=== PATIENT | male | born 1985 | race Caucasian/White ===

== ENCOUNTER 2018-04-28 22:52 | Emergency (ER) | payer BC ==
[~2018-04-28] VITALS: Ht 180.3 cm; Wt 97.0 kg
[2018-04-28 22:52] VITALS: BP 131/85
[2018-04-28] MEDS ORDERED: SULF1TAB24 PO (23:46)
--- NOTE | 2018-04-28 23:49 | PHYS DOC ---
Adult General Chief Complaint Chief Complaint laceration HPI HPI 33 years old gentleman presented emergency department with a laceration to the right hand, is able to move his fingers in all directions against resistance Review of Systems Review of Systems Constitutional: Denies fever or chills [] Eyes: Denies change in visual acuity, redness, or eye pain [] HENT: Denies nasal congestion or sore throat [] Respiratory: Denies cough or shortness of breath [] Cardiovascular: No additional information not addressed in HPI [] GI: Denies abdominal pain, nausea, vomiting, bloody stools or diarrhea [] : Denies dysuria or hematuria [] Musculoskeletal: Denies back pain or joint pain [] Integument: Right index laceration Neurologic: Denies headache, focal weakness or sensory changes [] Endocrine: Denies polyuria or polydipsia [] All other systems were reviewed and found to be within normal limits, except as documented in this note. Allergies Allergies Allergies Coded Allergies Type Severity Reaction Last Updated Verified Penicillins Allergy Intermediate 04/28/18 Yes doxycycline Allergy Intermediate 04/28/18 Yes Physical Exam Physical Exam Constitutional: Well developed, well nourished, no acute distress, non-toxic appearance. [] HENT: Normocephalic, atraumatic, bilateral external ears normal, oropharynx moist, no oral exudates, nose normal. [] Eyes: PERRLA, EOMI, conjunctiva normal, no discharge. [] Neck: Normal range of motion, no tenderness, supple, no stridor. [] Cardiovascular:Heart rate regular rhythm, no murmur [] Lungs & Thorax: Bilateral breath sounds clear to auscultation [] Abdomen: Bowel sounds normal, soft, no tenderness, no masses, no pulsatile masses. [] Skin: Warm, dry, no erythema, no rash. [] Back: No tenderness, no CVA tenderness. [] Extremities: No tenderness, no cyanosis, no clubbing, ROM intact, no edema. [] Neurologic: Alert and oriented X 3, normal motor function, normal sensory function, no focal deficits noted. [] Psychologic: Affect normal, judgement normal, mood normal. [] Current Patient Data Vital Signs Vital Signs Date Time Temp Pulse Resp B/P (MAP) Pulse Ox O2 Delivery O2 Flow Rate FiO2 04/28/18 22:52 98.5 110 18 98 Room Air EKG EKG [] Radiology/Procedures Radiology/Procedures [] Course & Med Decision Making Course & Med Decision Making wound inspected no foreign body noticed, irrigated with normal saline, 1000 mL , local anesthetic let again 1% used, nylon 4.0 used suture to close the wound 3 stitches Patient's able to move his finger in all directions against resistance [] Final Impression Final Impression [] Problems: (1) Laceration of hand Qualifiers: Qualified Codes: S61.411A - Laceration without foreign body of right hand, initial encounter Dragon Disclaimer Dragon Disclaimer This electronic medical record was generated, in whole or in part, using a voice recognition dictation system. DIVYA ALVARES MD Apr 28, 2018 23:49
--- NOTE | 2018-04-29 09:12 | RAD ---
EXAM: 3 views right hand DATE: 04/28/2018 11:12 PM INDICATION: Injury to right hand, 2 lacerations to posterior part of hand COMPARISON: No Prior FINDINGS/ IMPRESSION: 1. No evidence of acute fracture or dislocation. 2. Joint spaces are preserved without significant degenerative/proliferative change. 3. Mild dorsal soft tissue swelling. No definite retained radiopaque foreign body. Electronically signed by: Moose Lugo MD (04/29/2018 9:08 AM) [facility]
== END 2018-04-28 23:56 | disposition home or self-care (01) ==
LOC: ER 22:52
DX: S61.411A Laceration without foreign body of right hand, initial encounter (principal); X58.XXXA Exposure to other specified factors, initial encounter; Y93.89 Activity, other specified; Y92.89 Other specified places as the place of occurrence of the external cause; Y99.8 Other external cause status; Z88.0 Allergy status to penicillin; Z88.1 Allergy status to other antibiotic agents
CPT/HCPCS: 12001; 29130; 73130; 99283

== ENCOUNTER 2018-05-31 23:23 | Emergency (ER) | payer BC ==
[~2018-05-31] VITALS: Ht 180.3 cm; Wt 99.8 kg
[~2018-05-31 23:23] MED LIST: SULF1TAB24 PO
[2018-05-31 23:25] VITALS: BP 118/74
--- NOTE | 2018-05-31 23:34 | ED.ADGEN ---
Past History Past Medical History: No Pertinent History Past Surgical History: Other Alcohol Use: None Drug Use: None Adult General Chief Complaint Chief Complaint " I got surgery on of last month... everything was doing well ... last three days the incision area gotten more tender and red.. I tried to get in to see Dr. Daniel Esteves at [facility]... but he was out this weekend..." HPI HPI Patient is a 33 year old male who presents with above hx and complaints of inflammation of his suture line scar on right lower groin. Patient states shortly after the surgery suture line appeared to be healing well and had no inflammation. In the last 2 or 3 days he notices grown more red swollen and tender. On palpation of incision area it appears he may have cellulitis. But there is no obvious fluctuating abscess. 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 Patient denies any immunosuppression. Patient denies any travel. Patient denies any specific ill contacts. Patient does agree to injection of Rocephin and will be given a prescription for Keflex/Bactrim whichever med he can find at the most economical [place]. Patient must follow-up with his doctor Loretta Esteves at [facility]. Review of Systems Review of Systems Constitutional: Denies fever or chills [] Eyes: Denies change in visual acuity, redness, or eye pain [] HENT: Denies nasal congestion or sore throat [] Respiratory: Denies cough or shortness of breath [] Cardiovascular: No additional information not addressed in HPI [] GI: Denies abdominal pain, nausea, vomiting, bloody stools or diarrhea [] : Denies dysuria or hematuria [] Musculoskeletal: Denies back pain or joint pain [] Integument: Denies rash or skin lesions []complaints of cellulitis of surgical incision site Neurologic: Denies headache, focal weakness or sensory changes [] Endocrine: Denies polyuria or polydipsia [] All other systems were reviewed and found to be within normal limits, except as documented in this note. Family History Family History Noncontributory Current Medications Current Medications Current Medications Medications (Trade) Dose Ordered Sig/Irma Start Time Stop Time Status Last Admin Dose Admin Ceftriaxone Sodium (Rocephin Im) 2 gm 1X ONCE 06/01/18 00:30 06/01/18 00:32 DC Allergies Allergies Allergies Coded Allergies Type Severity Reaction Last Updated Verified Penicillins Allergy Intermediate 04/28/18 Yes doxycycline Allergy Intermediate 04/28/18 Yes Physical Exam Physical Exam Constitutional: Well developed, well nourished, mild distress, non-toxic appearance. [] HENT: Normocephalic, atraumatic, bilateral external ears normal, oropharynx moist, no oral exudates, nose normal. [] Eyes: PERRLA, EOMI, conjunctiva normal, no discharge. [] Neck: Normal range of motion, no tenderness, supple, no stridor. [] Cardiovascular:Heart rate regular rhythm, no murmur [] Lungs & Thorax: Bilateral breath sounds equal apex with scattered wheezes on auscultation [] Abdomen: Bowel sounds normal, soft, no tenderness, no masses, no pulsatile masses. []Except Right lower abdomen surgery site as per history of present illness Skin: Warm, dry, no erythema, no rash. [] Multiple tattoos Back: No tenderness, no CVA tenderness. [] Extremities: No tenderness, no cyanosis, no clubbing, ROM intact, no edema. [] Neurologic: Alert and oriented X 3, normal motor function, normal sensory function, no focal deficits noted. [] Psychologic: Affect normal, judgement normal, mood normal. [] Current Patient Data Vital Signs Vital Signs Date Time Temp Pulse Resp B/P (MAP) Pulse Ox O2 Delivery O2 Flow Rate FiO2 05/31/18 23:25 98.0 98 20 98 Room Air EKG EKG [] Radiology/Procedures Radiology/Procedures [] Course & Med Decision Making Course & Med Decision Making Pertinent Labs and Imaging studies reviewed. (See chart for details). Patient to use warm compresses. Patient apply Polysporin to site 4 times a day. Patient take Keflex or Bactrim as directed. Must follow-up with his surgeon. Tylenol and ibuprofen for discomfort [] Final Impression Final Impression 1. Hernia Surgery Line Inflammation[]-cellulitis ? Dragon Disclaimer Dragon Disclaimer This electronic medical record was generated, in whole or in part, using a voice recognition dictation system. Dragon Disclaimer This chart was dictated in whole or in part using Voice Recognition software in a busy, high-work load, and often noisy Emergency Department environment. It may contain unintended and wholly unrecognized errors or omissions. Discharge Summary Visit Information Final Diagnosis Problems Medical Problems: (1) Cellulitis Status: Acute Brief Hospital Course Allergies Allergies Coded Allergies Type Severity Reaction Last Updated Verified Penicillins Allergy Intermediate 04/28/18 Yes doxycycline Allergy Intermediate 04/28/18 Yes Vital Signs Vital Signs Date Time Temp Pulse Resp B/P (MAP) Pulse Ox O2 Delivery O2 Flow Rate FiO2 05/31/18 23:25 98.0 98 20 98 Room Air Brief Hospital Course Mr. Estrella is a 33 old male who presented with cellulitis of Rt. Lower surgery site from 04/22. ( Per Pt. did not wait for his antibiotic and left) Pt. to follow up with his surgeon Discharge Information Condition at Discharge: Stable Disposition/Orders: D/C to Home Dischare Medications Current Medications Ceftriaxone Sodium (Rocephin Im) 2 gm 1X ONCE IM ; Start 06/01/18 at 00:30; Stop 06/01/18 at 00:32; Status DC Active Scripts Active Bactrim Ds Tablet (Sulfamethoxazole/Trimethoprim) 1 Each Tablet 1 Tab PO BID Keflex (Cephalexin) 500 Mg Capsule 500 Mg PO TID 10 Days Bactrim Ds Tablet (Sulfamethoxazole/Trimethoprim) 1 Each Tablet 1 Tab PO BID PRITI MCKENZIE MD May 31, 2018 23:34
[2018-05-31] MEDS ORDERED: CEPH-264 PO (23:58)
[2018-05-31] MEDS ORDERED: SULF1TAB24 PO (23:58)
[2018-06-01] MEDS ORDERED: cefTRIAXone IM 1 GM VIAL IM ONE (00:30)
== END 2018-06-01 00:22 | disposition left against medical advice (07) ==
LOC: ER 23:23
DX: L03.314 Cellulitis of groin (principal); T81.40XA Infection following a procedure, unspecified, initial encounter; Z98.890 Other specified postprocedural states; Z86.14 Personal history of Methicillin resistant Staphylococcus aureus infection; Z88.0 Allergy status to penicillin; Z88.1 Allergy status to other antibiotic agents
CPT/HCPCS: 99283

== ENCOUNTER 2018-06-05 21:14 | Emergency (ER) | payer BC ==
[~2018-06-05] VITALS: Ht 180.3 cm; Wt 98.9 kg
[~2018-06-05 21:14] MED LIST changes: +CEPH-264 PO
[2018-06-05 21:18] VITALS: BP 121/80
--- NOTE | 2018-06-05 23:00 | PHYS DOC ---
Past History Past Medical History: No Pertinent History Past Surgical History: Other Alcohol Use: None Drug Use: None Adult General Chief Complaint Chief Complaint: LACERATION/AVULSION HPI HPI 33-year-old male presents with laceration of his right little finger. The patient was using a mechanical winch when the cable unexpectedly flexed and struck his finger. It cut his finger through his gloves. The patient had immediate pain and bleeding and realized he needed sutures. He denies any other injuries. His tetanus is up-to-date. Review of Systems Review of Systems Constitutional: Denies fever or chills [] Eyes: Denies change in visual acuity, redness, or eye pain [] HENT: Denies nasal congestion or sore throat [] Respiratory: Denies cough or shortness of breath [] Cardiovascular: No additional information not addressed in HPI [] GI: Denies abdominal pain, nausea, vomiting, bloody stools or diarrhea [] : Denies dysuria or hematuria [] Musculoskeletal: Right little finger pain and laceration[] Integument: Denies rash or skin lesions [] Neurologic: Denies headache, focal weakness or sensory changes [] Endocrine: Denies polyuria or polydipsia [] All other systems were reviewed and found to be within normal limits, except as documented in this note. Allergies Allergies Allergies Coded Allergies Type Severity Reaction Last Updated Verified Penicillins Allergy Intermediate 04/28/18 Yes doxycycline Allergy Intermediate 04/28/18 Yes Physical Exam Physical Exam Constitutional: Well developed, well nourished, no acute distress, non-toxic appearance. [] HENT: Normocephalic, atraumatic, bilateral external ears normal, oropharynx moist, no oral exudates, nose normal. [] Eyes: PERRLA, EOMI, conjunctiva normal, no discharge. [] Neck: Normal range of motion, no tenderness, supple, no stridor. [] Cardiovascular:Heart rate regular rhythm, no murmur [] Lungs & Thorax: Bilateral breath sounds clear to auscultation [] Abdomen: Bowel sounds normal, soft, no tenderness, no masses, no pulsatile masses. [] Skin: 2.5 cm linear laceration of the right little finger volar side.[] Back: No tenderness, no CVA tenderness. [] Extremities: No tenderness, no cyanosis, no clubbing, ROM intact, no edema. [] Neurologic: Alert and oriented X 3, normal motor function, normal sensory function, no focal deficits noted. [] Psychologic: Affect normal, judgement normal, mood normal. [] Current Patient Data Vital Signs Vital Signs Date Time Temp Pulse Resp B/P (MAP) Pulse Ox O2 Delivery O2 Flow Rate FiO2 06/05/18 21:18 98.4 90 18 96 Room Air EKG EKG [] Radiology/Procedures Radiology/Procedures [] Course & Med Decision Making Course & Med Decision Making Pertinent Labs and Imaging studies reviewed. (See chart for details) The patient's laceration did occur sutures. I was able to repair it. See note below for details. Since the wound did involve gloves and possibly dirty object , I will cover him with Keflex prophylactically for 7 days. The patient was seen in this facility for another complication week ago and given an antibiotic that he did not end up taking because his abscess spontaneously drained and healed without antibiotics. He will take these antibiotics for this prophylaxis. He is stable for discharge at this time. [] Dragon Disclaimer Dragon Disclaimer This electronic medical record was generated, in whole or in part, using a voice recognition dictation system. Laceration Repair Lac Repair Indication: 2.5 centimeter laceration right little finger Procedure: Consent was obtained for the patient for suture repair of his right little finger. A digital block was performed with lidocaine. A total of 8 mL was used. The wound was thoroughly irrigated with Hibiclens saline solution. No foreign bodies were found. Once good anesthesia was achieved, I repaired the laceration with 6 4-0 Ethilon interrupted sutures. There was some complexity to the linear laceration requiring 2 flaps to be approximated and then closed with the other side of the laceration. Total repaired wound length: 2.5cm. Other Items: none The patient tolerated the procedure well. Complications: Anesthesia was not achieved with the first dose. Additional direct wound anesthesia was required. Departure Departure: Impression: Primary Impression: Laceration of left little finger Disposition: HOME, SELF-CARE Condition: STABLE Referrals: PCP,NO (PCP) Patient Instructions: Sutured Wound Care, [id number] Problem Qualifiers Primary Impression: Laceration of left little finger Encounter type: initial encounter Damage to nail status: without damage Foreign body presence: without foreign body Qualified Codes: S61.217A - Laceration without foreign body of left little finger without damage to nail, initial encounter NIK HAMILTON DO Jun 05, 2018 23:00
== END 2018-06-05 23:15 | disposition home or self-care (01) ==
LOC: ER 21:14
DX: S61.216A Laceration without foreign body of right little finger without damage to nail, initial encounter (principal); Z88.0 Allergy status to penicillin; Z88.1 Allergy status to other antibiotic agents; W26.8XXA Contact with other sharp object(s), not elsewhere classified, initial encounter; Y93.89 Activity, other specified; Y92.89 Other specified places as the place of occurrence of the external cause; Y99.8 Other external cause status
CPT/HCPCS: 12001; 99283

== ENCOUNTER 2018-09-10 14:34 | Emergency (ER) | payer BC ==
[~2018-09-10] VITALS: Ht 180.3 cm; Wt 97.9 kg
[2018-09-10] MEDS ORDERED: IV NORMAL SALINE 1,000ML 1,000 ML IV ONE (15:15)
--- NOTE | 2018-09-10 15:20 | PHYS DOC ---
Past History Past Medical History: No Pertinent History Past Surgical History: Other Past Surgical History Inguinal hernia repair Smoking: Cigarettes Alcohol Use: None Drug Use: None Adult General Chief Complaint Chief Complaint: CHEST PAIN HPI HPI Patient is a 33 year old male who presents with acute onset chest pain that began abruptly approximately 1 hour ago. He states that he was sitting at the computer when all of the sudden he felt as if he was "kicked in the chest". He further characterizes the pain as dull ache that increases to a sharp pain with movement. Pain is most localized to right parasternal border. Patient states he has also experienced nausea, slight shortness of breath, and worsening of his pain with exertion. Denies diaphoresis, dizziness, focal weakness, or palpitations. Review of Systems Review of Systems Constitutional: Denies fever or chills [] Eyes: Denies blurry vision or diplopia [] HENT: Denies nasal congestion or sore throat [] Respiratory: Reports chronic cough and present shortness of breath [] Cardiovascular: Reports chest pain. Denies palpitations. [] GI: Reports nausea. Denies abdominal pain, nausea or diarrhea [] : Denies dysuria or hematuria [] Musculoskeletal: Reports back pain localized to the right of midthoracic spinous processes [] Integument: Denies rash or skin lesions [] Neurologic: Denies headache, focal weakness or sensory changes [] Complete review of systems found to be within normal limits, except as documented in this note. Current Medications Current Medications Current Medications Medications (Trade) Dose Ordered Sig/Irma Start Time Stop Time Status Last Admin Dose Admin Dexamethasone Sodium Phosphate (Decadron) 10 mg 1X ONCE 09/10/18 15:15 09/10/18 15:16 UNV Ketorolac Tromethamine (Toradol 15mg Vial) 15 mg 1X ONCE 09/10/18 15:15 09/10/18 15:16 UNV Sodium Chloride 1,000 ml @ 1,000 mls/hr 1X ONCE 09/10/18 15:15 09/10/18 16:14 UNV Allergies Allergies Allergies Coded Allergies Type Severity Reaction Last Updated Verified Penicillins Allergy Intermediate 04/28/18 Yes doxycycline Allergy Intermediate 04/28/18 Yes Physical Exam Physical Exam Constitutional: Well developed, well nourished, concerned but speaking in full sentences and in no apparent distress. [] HENT: Normocephalic, atraumatic, mucous membranes moist. [] Eyes: EOMI, conjunctiva normal, no discharge. [] Cardiovascular: Heart rate regular rhythm, no murmur [] Lungs & Thorax: Bilateral breath sounds clear to auscultation [] Abdomen: Soft and nontender. [] Skin: Warm, dry, no erythema, no rash. [] Back: Tender to palpation in midthoracic paraspinal musculature on right. [] Extremities: Radial pulses +2/4 b/l. no cyanosis. Neuro: Alert and oriented, normal motor function, no focal deficits noted. [] Psychologic: Affect normal, judgement normal, mood normal. [] EKG EKG @1503 Normal sinus rhythm with rate of 75 bpm. Normal axis. Non pathologic Q waves in lead I and aVL. No ST segment elevation or depression. [] Radiology/Procedures Radiology/Procedures PROCEDURE: CHEST PA & LATERAL CHEST PA LATERAL History: Chest pain Comparison: None. Findings: 2 views of the chest are submitted. There is no infiltrate, pneumothorax, or effusion. The cardiac silhouette is within normal limits in size. The trachea is in the midline. No acute osseous abnormality is identified. Impression: 1. There is no radiographic evidence of acute cardiopulmonary disease. Electronically signed by: Ellis Sparks MD (09/10/2018 3:35 PM) [id number] Course & Med Decision Making Course & Med Decision Making Pertinent Labs and Imaging studies reviewed. (See chart for details) Patient with low cardiac risk factors (smoking) presents with atypical chest pain. EKG stable. Labs obtained and posted to chart. Troponin negative. PE r/o per PERC. CXR also without acute process. Symptomatic treatment provided with interval improvement. Patient stable for discharge with outpatient follow- up with PCP. Discussed findings and plan with patient, who acknowledges understanding and agreement. Dragon Disclaimer Dragon Disclaimer This electronic medical record was generated, in whole or in part, using a voice recognition dictation system. Departure Departure: Impression: Primary Impression: Atypical chest pain Disposition: HOME, SELF-CARE Condition: STABLE Referrals: PCP,NO (PCP) Patient Instructions: Chest Pain (Nonspecific), Srpt-[id number], Costochondritis, [id number] Additional Instructions: Use over the counter Tylenol and Ibuprofen for pain or discomfort. Scripts Prednisone (PREDNISONE) 20 Mg Tablet 2 TAB PO DAILY for Costochondritis, #8 TAB Start this medication tomorrow, 09/11/18. Prov: JULI HERNANDEZ DO 09/10/18 HEART Score for Chest Pain PTs The HEART Score for CP Pts HEART Score for Chest Pain: HEART Score for Chest Pain Response (Comments) Value History Slighlty/Non-Suspicious 0 ECG Normal 0 Age < 45 0 Risk Factors 1 or 2 Risk Factors 1 Troponin < Normal Limit 0 Total 1 Risk Factors: Risk Factors: DM, Current or recent (<one month) smoker, HTN, HLP, family history of CAD, obesity. Risk Scores: Score 0 - 3: 2.5% MACE over next 6 weeks - Discharge Home Score 4 - 6: 20.3% MACE over next 6 weeks - Admit for Clinical Observation Score 7 - 10: 72.7% MACE over next 6 weeks - Early Invasive Strategies PERC Rule for PE PERC Rule for PE Response (Comments) Value Age > 50: No 0 HR > 100: No 0 Sa02 on room air <95%: No 0 Unilateral leg swelling: No 0 Hemoptysis: No 0 Recent surgery or trauma: No 0 Prior PE or DVT: No 0 Hormone use: No 0 Total 0 JULI HERNANDEZ DO September 10, 2018 15:20
[2018-09-10] MEDS ORDERED: KETOROLAC 15 MG/ML VIAL. IV ONE (15:30)
[2018-09-10] MEDS ORDERED: DEXAMETHASONE SOD PHOS 10 MG/ML VIAL IV ONE (15:30)
--- NOTE | 2018-09-10 15:34 | EKG ---
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
--- NOTE | 2018-09-10 15:38 | RAD ---
CHEST PA LATERAL History: Chest pain Comparison: None. Findings: 2 views of the chest are submitted. There is no infiltrate, pneumothorax, or effusion. The cardiac silhouette is within normal limits in size. The trachea is in the midline. No acute osseous abnormality is identified. Impression: 1. There is no radiographic evidence of acute cardiopulmonary disease. Electronically signed by: Ellis Sparks MD (09/10/2018 3:35 PM) [id number]
[2018-09-10 16:04] LABS: BASO # 0.1 x10^3/uL (0.0-0.2); BASO % 1 % (0-3); EOS # 0.2 x10^3/uL (0.0-0.7); EOS % 2 % (0-3); HEMATOCRIT 48.7 % (39.0-53.0); HEMOGLOBIN 16.6 g/dL (13.0-17.5); LYMPH # 2.9 x10^3/uL (1.0-4.8); LYMPH % 27 % (24-48); MEAN CORPUSCULAR HEMOGLOBIN 29 pg (25-35); MEAN CORPUSCULAR HGB CONC 34 g/dL (31-37); MEAN CORPUSCULAR VOLUME 84 fL (79-100); MONO # 0.6 x10^3/uL (0.0-1.1); MONO % 5 % (0-9); NEUT # 6.8 x10^3uL (1.8-7.7); NEUT % 65 % (31-73); PLATELET COUNT 179 x10^3/uL (140-400); RED BLOOD COUNT 5.78 x10^6/uL (4.30-5.70); RED CELL DISTRIBUTION WIDTH 14.4 % (11.5-14.5); WHITE BLOOD COUNT 10.5 x10^3/uL (4.0-11.0)
[2018-09-10 16:36] LABS: ALBUMIN 3.9 g/dL (3.4-5.0); ALBUMIN/GLOBULIN RATIO 1.1 (1.0-1.7); GFR 86.1; POTASSIUM 4.1 mmol/L (3.5-5.1); TOTAL BILIRUBIN 0.6 mg/dL (0.2-1.0); TOTAL PROTEIN 7.4 g/dL (6.4-8.2)
[2018-09-10] MEDS ORDERED: PRED20TA PO (16:52)
[2018-09-10 17:06] VITALS: BP 110/83
== END 2018-09-10 17:06 | disposition home or self-care (01) ==
LOC: ER 14:34
DX: R07.2 Precordial pain (principal); M54.6 Pain in thoracic spine; F17.210 Nicotine dependence, cigarettes, uncomplicated; Z88.0 Allergy status to penicillin; Z88.1 Allergy status to other antibiotic agents
CPT/HCPCS: 36415; 71046; 80053; 82553; 83735; 84484; 85025; 93005; 96374; 96375; 99285; J1100; J1885; J7030

== ENCOUNTER 2018-11-04 01:46 | Emergency (ER) | payer BC ==
[~2018-11-04] VITALS: Ht 180.3 cm; Wt 97.1 kg
[~2018-11-04 01:46] MED LIST changes: +PRED20TA PO
[2018-11-04 01:55] VITALS: BP 115/71
--- NOTE | 2018-11-04 01:58 | PHYS DOC ---
Past History Past Medical History: No Pertinent History Additional Past Surgical Histo: Inguinal hernia repair Smoking: Cigarettes Alcohol Use: None Drug Use: None Adult General Chief Complaint Chief Complaint: URI HPI HPI 32-year-old male presents with 3 day history of URI type symptoms including body aches, nasal congestion, productive cough, and sore throat. Patient also reports some associated nausea and diarrhea. Denies vomiting. Denies fever or chills. Denies known sick contacts. Denies travel outside [place]. Review of Systems Review of Systems Constitutional: Denies fever or chill; reports body aches Eyes: Denies redness or eye pain HENT: Reports nasal congestion and sore throat Respiratory: Reports productive cough; denies shortness of breath Cardiovascular: Denies chest pain or palpitations GI: Denies abdominal pain; reports diarrhea and nausea : Denies dysuria or hematuria Musculoskeletal: Denies back pain or joint pain Integument: Denies rash or skin lesions Neurologic: Denies headache, focal weakness or sensory changes Complete systems were reviewed and found to be within normal limits, except as documented in this note. Allergies Allergies Allergies Coded Allergies Type Severity Reaction Last Updated Verified Penicillins Allergy Intermediate 04/28/18 Yes doxycycline Allergy Intermediate 04/28/18 Yes Physical Exam Physical Exam Constitutional: Well developed, well nourished, no acute distress, non-toxic appearance HENT: Normocephalic, atraumatic, oropharynx moist, turbinates swollen bilaterally, mild pharyngeal erythema which appears secondary to postnasal drip. Eyes: Conjunctiva normal, no discharge Neck: Normal range of motion, no tenderness, supple, no meningeal signs Cardiovascular: Heart rate normal, regular rhythm Lungs & Thorax: Bilateral breath sounds clear to auscultation, no wheezing Abdomen: Soft, no tenderness Skin: Warm, dry, no erythema, no rash Back: No tenderness, no CVA tenderness Extremities: No tenderness, ROM intact, no edema Neurologic: Alert and oriented X 3, no focal deficits noted Psychologic: Affect normal, judgement normal, mood normal EKG EKG [] Radiology/Procedures Radiology/Procedures [] Course & Med Decision Making Course & Med Decision Making Patient presents with history of present illness and physical exam consistent for acute URI. Symptomatic treatment provided with oral steroid. Patient also reports some diarrhea. Abdomen non-peritoneal. Hx of smoking. Rx for antibiotics given with instructions to watch and wait 48 hour prior to antibiotics. If symptoms improve, patient to hold antibiotics, if not, patient instructed to start antibiotics as prescribed. Patient stable for discharge with outpatient follow-up with PCP. Discussed findings and plan with patient, who acknowledges understanding and agreement. Herb Disclaimer Herb Disclaimer This electronic medical record was generated, in whole or in part, using a voice recognition dictation system. Departure Departure: Impression: Primary Impression: URI (upper respiratory infection) Additional Impression: Diarrhea Disposition: HOME, SELF-CARE Condition: STABLE Referrals: PCP,NO (PCP) Patient Instructions: Diarrhea, [id number], Diet for Diarrhea, Adult, Upper Respiratory Infection, Adult, [id number] Additional Instructions: Use over the counter cold and cough remedies. Increase your diet to include foods that will help with diarrhea- ie BRAT diet (bananas, rice, applesauce, toast) Increase fluid hydration. Hold antibiotics for 48 hours. If symptoms worsen or for fever > 100.3 F after 48 hours then start antibiotics as prescribed. Scripts Azithromycin (AZITHROMYCIN TABLET) 250 Mg Tablet 1 PKG PO UD for bronchitis, #6 TAB Take 2 tablets today and then one tablet every day thereafter for the next 4 days Prov: JULI HERNANDEZ DO 11/04/18 Problem Qualifiers Primary Impression: URI (upper respiratory infection) URI type: unspecified URI Qualified Codes: J06.9 - Acute upper respiratory infection, unspecified Additional Impression: Diarrhea Diarrhea type: unspecified type Qualified Codes: R19.7 - Diarrhea, unspecified JULI HERNANDEZ DO Nov 04, 2018 01:58
[2018-11-04] MEDS ORDERED: DEXAMETHASONE SOD PHOS 10 MG/ML VIAL IV ONE (02:00)
[2018-11-04] MEDS ORDERED: AZIT250T6 PO (02:09)
[2018-11-04] MEDS ORDERED: DEXAMETHASONE 4 MG TABLET PO ONE (02:15)
== END 2018-11-04 02:18 | disposition home or self-care (01) ==
LOC: ER 01:46
DX: J06.9 Acute upper respiratory infection, unspecified (principal); R19.7 Diarrhea, unspecified; F17.210 Nicotine dependence, cigarettes, uncomplicated; Z88.0 Allergy status to penicillin; Z88.1 Allergy status to other antibiotic agents
CPT/HCPCS: 99283; J8540

== ENCOUNTER 2018-11-06 23:19 | Inpatient (IN) | payer BC ==
[~2018-11-06] VITALS: Ht 180.3 cm; Wt 99.0 kg
[~2018-11-06 23:19] MED LIST changes: +AZIT250T6 PO
--- NOTE | 2018-11-06 23:22 | ED.ADGEN ---
Past History Past Medical History: No Pertinent History, Asthma, Bronchitis, Pneumonia Additional Past Surgical Histo: Inguinal hernia repair Smoking: Cigarettes Alcohol Use: None Drug Use: None Adult General Chief Complaint Chief Complaint ".. I am much worse today.... I was here the other day...I seen Dr. Robledo.... but I much more short ... of breath.. coughing.. just not better..." .. " I ache every... where.. joints even my muscles..." HPI HPI Patient is a 33 year old male who presents with above hx and complaints of dyspnea, cough, wheezing, fever, chills, myalgia, arthralgia, dyspnea, and malaise. Patient states symptoms started with a sore throat but that has now resolved. Patient still smoking some but having episodes of severe bronchospasms and wheezing. Patient denies any history of immunosuppression or HIV. Patient denies any travel or specific ill contacts. Patient does have a significant allergy to penicillin and doxycycline which causes a rash. No history of exposures to trigger his dyspnea and wheezing. Review of Systems Review of Systems Constitutional: Complains of fever or chills [] Eyes: Denies change in visual acuity, redness, or eye pain [] HENT: Plaints of nasal congestion and sore throat [] Respiratory: Complains of cough, wheezing and shortness of breath [] Cardiovascular: No additional information not addressed in HPI [] GI: Denies abdominal pain, nausea, vomiting, bloody stools or diarrhea [] : Denies dysuria or hematuria [] Musculoskeletal: Complains of generalized arthralgia and myalgia Integument: Denies rash or skin lesions [] Neurologic: Denies headache, focal weakness or sensory changes [] Endocrine: Denies polyuria or polydipsia [] All other systems were reviewed and found to be within normal limits, except as documented in this note. Family History Family History Noncontributory to presentation Current Medications Current Medications Current Medications Medications (Trade) Dose Ordered Sig/Irma Start Time Stop Time Status Last Admin Dose Admin Acetaminophen (Tylenol) 650 mg PRN Q4HRS PRN 11/07/18 01:00 11/08/18 00:59 Albuterol/ Ipratropium (Duoneb) 3 ml RTQID 11/07/18 08:00 11/08/18 07:59 11/07/18 02:10 3 ML Azithromycin (Zithromax) 250 mg DAILY 11/07/18 09:00 Diphenhydramine HCl (Benadryl) 25 mg QID 11/07/18 09:00 Lactated Ringer's 1,000 ml @ 200 mls/hr Q5H 11/07/18 09:00 Methylprednisolone Sodium Succinate (SOLU-Medrol 125MG VIAL) 125 mg DAILY 11/07/18 09:00 Morphine Sulfate (Morphine 2mg Syringe) 2 mg 1X ONCE 11/07/18 01:45 11/07/18 02:29 DC 11/07/18 02:18 2 MG Nicotine (Nicoderm Cq 21mg) 1 patch 1X ONCE 11/07/18 01:00 11/07/18 02:28 DC 11/07/18 01:00 1 PATCH Ondansetron HCl (Zofran) 4 mg PRN Q4HRS PRN 11/07/18 01:00 11/08/18 00:59 Promethazine HCl/ Codeine (Phenergan With Codeine Oral Syrup) 5 ml PRN Q6HRS PRN 11/07/18 03:30 UNV 11/07/18 03:29 5 ML Sodium Chloride 250 ml @ As Directed STK-MED ONCE 11/07/18 03:22 11/07/18 03:23 DC Throat Lozenges (Cepacol Sore Throat Lozenge) 1 olayinka PRN Q2HR PRN 11/07/18 03:00 Vancomycin HCl (Vanco Per Pharmacy) 1 each PRN DAILY PRN 11/07/18 01:00 UNV Vancomycin HCl (Vancomycin) 1 gm STK-MED ONCE 11/07/18 03:22 11/07/18 03:23 DC Vancomycin HCl 1 gm/Sodium Chloride 250 ml @ 250 mls/hr ONCE ONCE 11/07/18 03:00 11/07/18 03:59 11/07/18 03:28 250 MLS/HR Allergies Allergies Allergies Coded Allergies Type Severity Reaction Last Updated Verified Penicillins Allergy Intermediate 04/28/18 Yes doxycycline Allergy Intermediate 04/28/18 Yes Physical Exam Physical Exam Constitutional: Well developed, well nourished, in moderately acute distress, ill in appearance. [] HENT: Normocephalic, atraumatic, bilateral external ears normal, oropharynx moist, very mild erythemic pharyngeal, no oral exudates, nose slightly swollen turbinates and clear rhinorrhea Eyes: PERRLA, EOMI, conjunctiva normal, no discharge. [] Neck: Normal range of motion, no tenderness, supple, no stridor. [] Cardiovascular: Tachycardia Heart rate regular rhythm, no murmur [] Lungs & Thorax: Bilateral breath sounds equal apex with wheezes throughout on Auscultation []coughing spasms Abdomen: Bowel sounds normal, soft, no tenderness, no masses, no pulsatile masses. [] Old surgery scar. Skin: Warm, diaphoretic, no erythema, no rash. [] Multiple tattoos Back: No tenderness, no CVA tenderness. [] Extremities: No tenderness, no cyanosis, no clubbing, ROM intact, no edema. [] Neurologic: Alert and oriented X 3, normal motor function, normal sensory function, no focal deficits noted. [] Psychologic: Affect anxious, judgement normal, mood normal. [] Current Patient Data Vital Signs Vital Signs Date Time Temp Pulse Resp B/P (MAP) Pulse Ox O2 Delivery O2 Flow Rate FiO2 11/06/18 23:25 98.6 105 24 120/66 (84) 97 Room Air Lab Results Laboratory Tests Test 11/06/18 00:35 11/06/18 23:45 11/06/18 23:59 Urine Collection Type Void Urine Color Isabella Urine Clarity Clear Urine pH 6.0 Urine Specific [place] >=1.030 Urine Protein Neg (NEG-TRACE) Urine Glucose (UA) Neg mg/dL (NEG) Urine Ketones (Stick) Neg mg/dL (NEG) Urine Blood Neg (NEG) Urine Nitrite Neg (NEG) Urine Bilirubin Neg (NEG) Urine Urobilinogen Dipstick 0.2 mg/dL (0.2 mg/dL) Urine Leukocyte Esterase Neg (NEG) Urine RBC 0 /HPF (0-2) Urine WBC 1-4 /HPF (0-4) Urine Squamous Epithelial Cells Occ /LPF Urine Bacteria Few /HPF (0-FEW) Urine Mucus Mod /LPF Urine Opiates Screen Neg (NEG) Urine Methadone Screen Neg (NEG) Urine Barbiturates Neg (NEG) Urine Phencyclidine Screen Neg (NEG) Urine Amphetamine/Methamphetamine Neg (NEG) Urine Benzodiazepines Screen Neg (NEG) Urine Cocaine Screen Neg (NEG) Urine Cannabinoids Screen Neg (NEG) Urine Ethyl Alcohol Neg (NEG) White Blood Count 13.0 x10^3/uL (4.0-11.0) H Red Blood Count 5.54 x10^6/uL (4.30-5.70) Hemoglobin 15.7 g/dL (13.0-17.5) Hematocrit 47.0 % (39.0-53.0) Mean Corpuscular Volume 85 fL (79-100) Mean Corpuscular Hemoglobin 28 pg (25-35) Mean Corpuscular Hemoglobin Concent 34 g/dL (31-37) Red Cell Distribution Width 15.0 % (11.5-14.5) H Platelet Count 189 x10^3/uL (140-400) Neutrophils (%) (Auto) 57 % (31-73) Lymphocytes (%) (Auto) 34 % (24-48) Monocytes (%) (Auto) 6 % (0-9) Eosinophils (%) (Auto) 3 % (0-3) Basophils (%) (Auto) 1 % (0-3) Neutrophils # (Auto) 7.4 x10^3uL (1.8-7.7) Lymphocytes # (Auto) 4.4 x10^3/uL (1.0-4.8) Monocytes # (Auto) 0.8 x10^3/uL (0.0-1.1) Eosinophils # (Auto) 0.3 x10^3/uL (0.0-0.7) Basophils # (Auto) 0.1 x10^3/uL (0.0-0.2) Prothrombin Time < 9.3 SEC (9.4-11.4) L Prothrombin Time INR 0.9 (0.9-1.1) PTT 25 SEC (23-33) D-Dimer (Anne-Marie) 0.26 mg/L (0.00-0.50) Sodium Level 143 mmol/L (136-145) Potassium Level 3.2 mmol/L (3.5-5.1) L Chloride Level 105 mmol/L (98-107) Carbon Dioxide Level 26 mmol/L (21-32) Anion Gap 12 (6-14) Blood Urea Nitrogen 17 mg/dL (8-26) Creatinine 1.3 mg/dL (0.7-1.3) Estimated GFR (Cockcroft-Gault) 63.6 Glucose Level 122 mg/dL (70-99) H Lactic Acid Level 2.4 mmol/L (0.4-2.0) H Calcium Level 9.1 mg/dL (8.5-10.1) Magnesium Level 1.8 mg/dL (1.8-2.4) Total Bilirubin 0.4 mg/dL (0.2-1.0) Direct Bilirubin 0.1 mg/dL (0.0-0.2) Aspartate Amino Transferase (AST) 23 U/L (15-37) Alanine Aminotransferase (ALT) 35 U/L (16-63) Alkaline Phosphatase 85 U/L (46-116) Creatine Kinase 249 U/L (39-308) Troponin I Quantitative < 0.017 ng/mL (0-0.055) [id number]-Type Natriuretic Peptide 51 pg/mL (0-124) Total Protein 7.2 g/dL (6.4-8.2) Albumin 3.8 g/dL (3.4-5.0) Lipase 91 U/L (73-393) Influenza Type A (Rapid) Negative (NEGATIVE) Influenza Type B (Rapid) Negative (NEGATIVE) EKG EKG Interpretation of EKG shows a sinus tachycardia and 12 bpm. Does have a right bundle-branch block. Does have somewhat strain pattern.[] Radiology/Procedures Radiology/Procedures I interpretation chest x-ray shows atelectasis and some bronchograms. Somewhat central pattern. My interpretation with the bronchopneumonia/ marked bronchitis[] Course & Med Decision Making Course & Med Decision Making Pertinent Labs and Imaging studies reviewed. (See chart for details) Discussed presentation, testing and treatment plan with Dr. Gordillo. Pt. admitted to Dr. Gordillo Advised no hospital beds. Pt. to be held in ED per administration. 0001. Patient endorsed to Dr. Salgado at shift change because still in the emergency department. [] Final Impression Final Impression 1. Bronchial Pneumonia 2. Leukocytosis- 13. 3. Hypokalemia 3.2 4. Tobacco Use 5. Elevated Lactic Acid 2.4 Dragon Disclaimer Dragon Disclaimer This electronic medical record was generated, in whole or in part, using a voice recognition dictation system. Discharge Summary Visit Information Final Diagnosis Problems Medical Problems: (1) Bronchial pneumonia Status: Acute Brief Hospital Course Allergies Allergies Coded Allergies Type Severity Reaction Last Updated Verified Penicillins Allergy Intermediate 04/28/18 Yes doxycycline Allergy Intermediate 04/28/18 Yes Vital Signs Vital Signs Date Time Temp Pulse Resp B/P (MAP) Pulse Ox O2 Delivery O2 Flow Rate FiO2 11/07/18 06:15 98.3 110 22 113/47 (69) 92 Room Air Lab Results Laboratory Tests Test 11/06/18 00:35 11/06/18 23:45 11/06/18 23:59 Urine Collection Type Void Urine Color Isabella Urine Clarity Clear Urine pH 6.0 Urine Specific [place] >=1.030 Urine Protein Neg (NEG-TRACE) Urine Glucose (UA) Neg mg/dL (NEG) Urine Ketones (Stick) Neg mg/dL (NEG) Urine Blood Neg (NEG) Urine Nitrite Neg (NEG) Urine Bilirubin Neg (NEG) Urine Urobilinogen Dipstick 0.2 mg/dL (0.2 mg/dL) Urine Leukocyte Esterase Neg (NEG) Urine RBC 0 /HPF (0-2) Urine WBC 1-4 /HPF (0-4) Urine Squamous Epithelial Cells Occ /LPF Urine Bacteria Few /HPF (0-FEW) Urine Mucus Mod /LPF Urine Opiates Screen Neg (NEG) Urine Methadone Screen Neg (NEG) Urine Barbiturates Neg (NEG) Urine Phencyclidine Screen Neg (NEG) Urine Amphetamine/Methamphetamine Neg (NEG) Urine Benzodiazepines Screen Neg (NEG) Urine Cocaine Screen Neg (NEG) Urine Cannabinoids Screen Neg (NEG) Urine Ethyl Alcohol Neg (NEG) White Blood Count 13.0 x10^3/uL (4.0-11.0) Red Blood Count 5.54 x10^6/uL (4.30-5.70) Hemoglobin 15.7 g/dL (13.0-17.5) Hematocrit 47.0 % (39.0-53.0) Mean Corpuscular Volume 85 fL (79-100) Mean Corpuscular Hemoglobin 28 pg (25-35) Mean Corpuscular Hemoglobin Concent 34 g/dL (31-37) Red Cell Distribution Width 15.0 % (11.5-14.5) Platelet Count 189 x10^3/uL (140-400) Neutrophils (%) (Auto) 57 % (31-73) Lymphocytes (%) (Auto) 34 % (24-48) Monocytes (%) (Auto) 6 % (0-9) Eosinophils (%) (Auto) 3 % (0-3) Basophils (%) (Auto) 1 % (0-3) Neutrophils # (Auto) 7.4 x10^3uL (1.8-7.7) Lymphocytes # (Auto) 4.4 x10^3/uL (1.0-4.8) Monocytes # (Auto) 0.8 x10^3/uL (0.0-1.1) Eosinophils # (Auto) 0.3 x10^3/uL (0.0-0.7) Basophils # (Auto) 0.1 x10^3/uL (0.0-0.2) Prothrombin Time < 9.3 SEC (9.4-11.4) Prothromb Time International Ratio 0.9 (0.9-1.1) Activated Partial Thromboplast Time 25 SEC (23-33) D-Dimer (Anne-Marie) 0.26 mg/L (0.00-0.50) Sodium Level 143 mmol/L (136-145) Potassium Level 3.2 mmol/L (3.5-5.1) Chloride Level 105 mmol/L (98-107) Carbon Dioxide Level 26 mmol/L (21-32) Anion Gap 12 (6-14) Blood Urea Nitrogen 17 mg/dL (8-26) Creatinine 1.3 mg/dL (0.7-1.3) Estimated GFR (Cockcroft-Gault) 63.6 Glucose Level 122 mg/dL (70-99) Lactic Acid Level 2.4 mmol/L (0.4-2.0) Calcium Level 9.1 mg/dL (8.5-10.1) Magnesium Level 1.8 mg/dL (1.8-2.4) Total Bilirubin 0.4 mg/dL (0.2-1.0) Direct Bilirubin 0.1 mg/dL (0.0-0.2) Aspartate Amino Transf (AST/SGOT) 23 U/L (15-37) Alanine Aminotransferase (ALT/SGPT) 35 U/L (16-63) Alkaline Phosphatase 85 U/L (46-116) Creatine Kinase 249 U/L (39-308) Troponin I Quantitative < 0.017 ng/mL (0-0.055) WD-Njs-H-Type Natriuretic Peptide 51 pg/mL (0-124) Total Protein 7.2 g/dL (6.4-8.2) Albumin 3.8 g/dL (3.4-5.0) Lipase 91 U/L (73-393) Influenza Type A (Rapid) Negative (NEGATIVE) Influenza Type B (Rapid) Negative (NEGATIVE) Brief Hospital Course Mr. Estrella is a 33 old male who presented with bronchial pneumonia. Admitted to Dr. Gordillo. Discharge Information Condition at Discharge: Improved, Stable Dischare Medications Current Medications Albuterol/ Ipratropium (Duoneb) 3 ml STK-MED ONCE .ROUTE ; Start 11/06/18 at 23:29; Stop 11/06/18 at 23:30; Status DC Lactated Ringer's 1,000 ml @ 1,000 mls/hr Q1H IV Last administered on 11/07/18at 00:07; Start 11/06/18 at 23:30; Stop 11/07/18 at 00:29; Status DC Albuterol/ Ipratropium (Duoneb) 3 ml 1X ONCE NEB Last administered on 11/06/18at 23:43; Start 11/06/18 at 23:30; Stop 11/06/18 at 23:45; Status DC Methylprednisolone Sodium Succinate (SOLU-Medrol 125MG VIAL) 125 mg 1X ONCE IV Last administered on 11/07/18at 00:08; Start 11/06/18 at 23:45; Stop 11/06/18 at 23:46; Status DC Azithromycin (Zithromax) 500 mg 1X ONCE PO ; Start 11/06/18 at 23:45; Stop 11/06/18 at 23:46; Status DC Diphenhydramine HCl (Benadryl) 50 mg 1X ONCE PO Last administered on 11/07/18at 00:08; Start 11/06/18 at 23:45; Stop 11/06/18 at 23:46; Status DC Lactated Ringer's 1,000 ml @ 2,000 mls/hr 1X ONCE IV Last administered on 11/07/18at 01:09; Start 11/07/18 at 01:00; Stop 11/07/18 at 01:29; Status DC Vancomycin HCl 1 gm/Sodium Chloride 250 ml @ 250 mls/hr 1X ONCE IV Last administered on 11/07/18at 01:00; Start 11/07/18 at 01:00; Stop 11/07/18 at 01:59; Status DC Albuterol/ Ipratropium (Duoneb) 3 ml 1X ONCE NEB Last administered on 11/07/18at 00:43; Start 11/07/18 at 00:45; Stop 11/07/18 at 00:50; Status DC Vancomycin HCl (Vancomycin) 1 gm STK-MED ONCE .ROUTE ; Start 11/07/18 at 00:44; Stop 11/07/18 at 00:45; Status DC Sodium Chloride 250 ml @ As Directed STK-MED ONCE .ROUTE ; Start 11/07/18 at 00:45; Stop 11/07/18 at 00:46; Status DC Ondansetron HCl (Zofran) 4 mg PRN Q4HRS PRN IV NAUSEA/VOMITING; Start 11/07/18 at 01:00; Stop 11/08/18 at 00:59 Acetaminophen (Tylenol) 650 mg PRN Q4HRS PRN PO FEVER; Start 11/07/18 at 01:00; Stop 11/08/18 at 00:59 Albuterol/ Ipratropium (Duoneb) 3 ml RTQID NEB Last administered on 11/07/18at 02:10; Start 11/07/18 at 08:00; Stop 11/08/18 at 07:59 Azithromycin (Zithromax) 250 mg DAILY PO ; Start 11/07/18 at 09:00 Vancomycin HCl (Vanco Per Pharmacy) 1 each PRN DAILY PRN [facility] SEE COMMENTS; Start 11/07/18 at 01:00; Stop 11/07/18 at 06:26; Status DC Vancomycin HCl 1 gm/Sodium Chloride 250 ml @ 250 mls/hr ONCE ONCE IV Last administered on 11/07/18at 03:28; Start 11/07/18 at 03:00; Stop 11/07/18 at 03:59; Status DC Lactated Ringer's 1,000 ml @ 200 mls/hr Q5H IV Last administered on 11/07/18at 03:39; Start 11/07/18 at 09:00 Diphenhydramine HCl (Benadryl) 25 mg QID PO ; Start 11/07/18 at 09:00 Methylprednisolone Sodium Succinate (SOLU-Medrol 125MG VIAL) 125 mg DAILY IV ; Start 11/07/18 at 09:00 Nicotine (Nicoderm Cq 21mg) 1 patch 1X ONCE TD Last administered on 11/07/18at 01:00; Start 11/07/18 at 01:00; Stop 11/07/18 at 02:28; Status DC Morphine Sulfate (Morphine 2mg Syringe) 2 mg 1X ONCE IV Last administered on 11/07/18at 02:18; Start 11/07/18 at 01:45; Stop 11/07/18 at 02:29; Status DC Throat Lozenges (Cepacol Sore Throat Lozenge) 1 olayinka PRN Q2HR PRN PO SORE THROAT; Start 11/07/18 at 03:00 Promethazine HCl/ Codeine (Phenergan With Codeine Oral Syrup) 5 ml PRN Q6HRS PRN PEG COUGH Last administered on 11/07/18at 03:29; Start 11/07/18 at 03:30 Sodium Chloride 250 ml @ As Directed STK-MED ONCE .ROUTE ; Start 11/07/18 at 03:22; Stop 11/07/18 at 03:23; Status DC Vancomycin HCl (Vancomycin) 1 gm STK-MED ONCE .ROUTE ; Start 11/07/18 at 03:22; Stop 11/07/18 at 03:23; Status DC Promethazine HCl/ Codeine (Phenergan With Codeine Oral Syrup) 5 ml PRN Q6HRS PRN PEG COUGH; Start 11/07/18 at 03:45; Status Cancel Diphenhydramine HCl (Benadryl) 50 mg 1X ONCE IVP Last administered on 11/07/18at 05:31; Start 11/07/18 at 05:30; Stop 11/07/18 at 05:46; Status DC Vancomycin HCl (Vanco Per Pharmacy) 1 each PRN DAILY PRN [facility] SEE COMMENTS; Start 11/07/18 at 06:30; Status UNV Active Scripts Active Azithromycin Tablet (Azithromycin) 250 Mg Tablet 1 Pkg PO UD Take 2 tablets today and then one tablet every day thereafter for the next 4 days Dragon Disclaimer This chart was dictated in whole or in part using Voice Recognition software in a busy, high-work load, and often noisy Emergency Department environment. It may contain unintended and wholly unrecognized errors or omissions. PRITI MCKENZIE MD Nov 06, 2018 23:22
[2018-11-06] MEDS ORDERED: IPRATRPIUM/ALBUTEROL 0.5/2.5MG 3 ML NEBU. ONE (23:29)
[2018-11-06] MEDS ORDERED: IPRATRPIUM/ALBUTEROL 0.5/2.5MG 3 ML NEBU. NEB ONE (23:30)
[2018-11-06] MEDS ORDERED: IV RINGERS SOLUTION,LACTATED 1,000 ML IV SCH (23:30)
[2018-11-06] MEDS ORDERED: methylPREDNISolone SOD SUCC PF 125 MG/2 ML VIAL. IV ONE (23:45)
[2018-11-06] MEDS ORDERED: AZITHROMYCIN 250 MG TABLET. PO ONE (23:45)
[2018-11-06] MEDS ORDERED: diphenhydrAMINE HCL 25 MG CAPSULE PO ONE (23:45)
[2018-11-07 00:15] LABS: BASO # 0.1 x10^3/uL (0.0-0.2); BASO % 1 % (0-3); EOS # 0.3 x10^3/uL (0.0-0.7); EOS % 3 % (0-3); HEMOGLOBIN 15.7 g/dL (13.0-17.5); LYMPH # 4.4 x10^3/uL (1.0-4.8); LYMPH % 34 % (24-48); MEAN CORPUSCULAR HEMOGLOBIN 28 pg (25-35); MEAN CORPUSCULAR HGB CONC 34 g/dL (31-37); MEAN CORPUSCULAR VOLUME 85 fL (79-100); MONO # 0.8 x10^3/uL (0.0-1.1); MONO % 6 % (0-9); NEUT # 7.4 x10^3uL (1.8-7.7); NEUT % 57 % (31-73); PLATELET COUNT 189 x10^3/uL (140-400); RED BLOOD COUNT 5.54 x10^6/uL (4.30-5.70)
[2018-11-07 00:29] LABS: ALBUMIN 3.8 g/dL (3.4-5.0); CALCIUM 9.1 mg/dL (8.5-10.1); CREATININE 1.3 mg/dL (0.7-1.3); DIRECT BILIRUBIN 0.1 mg/dL (0.0-0.2); GFR 63.6; MAGNESIUM 1.8 mg/dL (1.8-2.4); POTASSIUM 3.2 mmol/L (3.5-5.1); TOTAL BILIRUBIN 0.4 mg/dL (0.2-1.0); TOTAL PROTEIN 7.2 g/dL (6.4-8.2)
[2018-11-07] MEDS ORDERED: VANCOMYCIN 1 GM VIAL. ONE ×2 (00:44→03:22)
[2018-11-07] MEDS ORDERED: IPRATRPIUM/ALBUTEROL 0.5/2.5MG 3 ML NEBU. NEB ONE (00:45)
[2018-11-07] MEDS ORDERED: IV NORMAL SALINE 250ML 250 ML ONE ×2 (00:45→03:22)
[2018-11-07 00:47] LABS: INFLUENZA A PATIENT NEGATIVE (NEGATIVE); INFLUENZA B PATIENT NEGATIVE (NEGATIVE)
[2018-11-07 00:58] LABS: BARBITURATES NEG (NEG); BENZODIAZEPINES NEG (NEG); CANNABINOIDS NEG (NEG); COCAINE NEG (NEG); METHADONE NEG (NEG); OPIATES NEG (NEG); PHENCYCLIDINE NEG (NEG)
[2018-11-07 00:59] LABS: AMPHETAMINE/METHAMPHETAMINE NEG (NEG)
[2018-11-07] MEDS ORDERED: NICOTINE 21MG PATCH. TD ONE ×2 (01:00→21:30)
[2018-11-07] MEDS ORDERED: ONDANSETRON PF 4 MG/2 ML VIAL. IV PRN (01:00)
[2018-11-07] MEDS ORDERED: VANCOMYCIN PER PHARMACY MC PRN (01:00)
[2018-11-07] MEDS ORDERED: VANCOMYCIN 1 GM in IV NORMAL SALINE 250ML 250 ML IV ONE ×2 (01:00→03:00)
[2018-11-07] MEDS ORDERED: IV RINGERS SOLUTION,LACTATED 1,000 ML IV ONE (01:00)
[2018-11-07] MEDS ORDERED: ACETAMINOPHEN 325 MG TABLET PO PRN (01:00)
[2018-11-07 01:02] LABS: BILIRUBIN,URINE NEG (NEG); CLARITY,URINE CLEAR; COLOR,URINE AMBER; GLUCOSE,URINE NEG (NEG); NITRITE,URINE NEG (NEG); RBC,URINE 0 /HPF (0-2); UROBILINOGEN,URINE 0.2 mg/dL (0.2 mg/dL)
[2018-11-07 01:03] LABS: BACTERIA,URINE FEW /HPF (0-FEW); SQUAMOUS EPITHELIAL CELL,UR OCC /LPF
[2018-11-07] MEDS ORDERED: MORPHINE SULFATE 2 MG/ML DISP.SYRIN. IV ONE (01:45)
[2018-11-07] MEDS: IPRATRPIUM/ALBUTEROL 0.5/2.5MG 3 ML NEBU. NEB SCH ×4 (02:10→19:52)
[2018-11-07] MEDS ORDERED: BENZOCAINE/MENTHOL LOZNGE 18'S BOX. PO PRN (03:00)
[2018-11-07] MEDS: PROMETH/CODEINE 6.25/10MG 5 ML SYRUP. PEG PRN ×3 (03:29→18:00)
[2018-11-07] MEDS ORDERED: PROMETH/CODEINE 6.25/10MG 5 ML SYRUP. PEG PRN (03:45)
[2018-11-07] MEDS ORDERED: diphenhydrAMINE 50 MG/ML VIAL IVP ONE (05:30)
[2018-11-07 07:05] VITALS: BP 120/66
[2018-11-07] MEDS: VANCOMYCIN PER PHARMACY MC PRN ×2 (07:22→07:26)
--- NOTE | 2018-11-07 08:07 | RAD ---
EXAM: CHEST 2 VIEWS. HISTORY: Cough, fever. COMPARISON: 09/10/2018. FINDINGS: Frontal and lateral views of the chest are obtained. There are no confluent infiltrates. There is no pneumothorax or pleural effusion. The heart is not enlarged. IMPRESSION: 1. No confluent infiltrates. Electronically signed by: Graciela Mantilla MD (11/07/2018 8:04 AM) [facility]
[2018-11-07] MEDS ORDERED: POTASSIUM CHLORIDE 20 MEQ TABLET.ER. PO ONE (08:30)
[2018-11-07] MEDS: diphenhydrAMINE 50 MG/ML VIAL IVP SCH ×4 (08:45→21:27)
[2018-11-07] MEDS: LACTOBACILLUS RHAMNOSUS GG 1 CAPSULE. PO SCH ×2 (08:45→21:27)
[2018-11-07] MEDS ORDERED: methylPREDNISolone SOD SUCC PF 125 MG/2 ML VIAL. IV SCH (09:00)
[2018-11-07] MEDS ORDERED: AZITHROMYCIN 250 MG TABLET. PO SCH (09:00)
[2018-11-07] MEDS ORDERED: diphenhydrAMINE HCL 25 MG CAPSULE PO SCH (09:00)
[2018-11-07] MEDS ORDERED: IV RINGERS SOLUTION,LACTATED 1,000 ML IV SCH (09:00)
[2018-11-07] MEDS: guaiFENesin DM 200MG/20MG 10 ML SYRUP PO PRN (10:13)
[2018-11-07 11:29] VITALS: BP 111/60
[2018-11-07] MEDS ORDERED: VANCOMYCIN 1.5 GM in IV NORMAL SALINE 500ML 500 ML IV SCH (13:00)
[2018-11-07] MEDS ORDERED: POLYVINYL ALCOHOL 1.4% OPHTH SOLUTION 15ML BOTTLE. OU PRN (13:30)
[2018-11-07 15:50] VITALS: BP 112/60
[2018-11-07] MEDS: methylPREDNISolone SOD SUCC PF 125 MG/2 ML VIAL. IV SCH (17:09)
--- NOTE | 2018-11-07 17:38 | HP ---
ADMIT DATE: 11/07/2018 HISTORY OF PRESENT ILLNESS: The patient is a 33-year-old male patient who came to the Emergency Room with a complaint of recurrent bouts of cough, shortness of breath, chest tightness, wheezing. He also complained of chills, myalgia, arthralgia, malaise. He started these symptoms with a sore throat that has now resolved. The patient is still smoking some, but has episodes of severe bronchospasm and wheezing. The patient denied any history of immunosuppression or HIV. Denied any travel or specific ill contact. He has no significant past medical history. His past surgical history is significant for surgical treatment of pyloric stenosis when he was a baby and also right inguinal hernia repair. FAMILY HISTORY: His father of liver disease. His mother is still alive, has diabetes and oral hypoglycemic agent. He has 6 brothers and 6 sisters, both older and younger. SOCIAL HISTORY: He is and has 3 children. His is . He smokes a pack a day. Does not drink alcohol or use any recreational drugs. 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 REVIEW OF SYSTEMS: The patient denied any blurring of vision, cataract, glaucoma or macular degeneration. Denied any earache, tinnitus or sensorineural deafness. Denied any nosebleeds, stuffy nose or postnasal drip. He did have sore throat that has resolved. Denied any nausea, vomiting, diarrhea or constipation. Denied any hematemesis, melena or hematochezia. Denied any dysuria, frequency or hematuria. Did complain of shortness of breath, cough and wheezing, also some fever and chills. PHYSICAL EXAMINATION: GENERAL: On arrival to the Emergency Room, he was somewhat tachypneic, tachycardic, but there was no pallor, jaundice, cyanosis, or thyromegaly. No jugular venous distension. No limb edema. VITAL SIGNS: His heart rate was 105, blood pressure was 120/66, temperature was 98.6, respiratory rate was 24, and oxygen saturation was 97%. HEAD, EYES, EARS, NOSE AND THROAT: Showed normocephalic, atraumatic. NECK: Supple. HEART: Showed normal first and second heart sounds. No gallop, rub or murmur. CHEST: Shows central trachea, equal bilateral expansion, air entry, vesicular sounds with diffuse scattered rhonchi. I could not appreciate any crepitation. ABDOMEN: Distended, soft, nontender. NEUROLOGIC: He is awake, alert, responding appropriately. All cranial nerves intact. EXTREMITIES: He moves extremities without difficulty, ambulates without assistance or assistive devices. LABORATORY DATA: While in the Emergency Room, he has had lab work done, which showed a white cell count of 13,000, hemoglobin 15.7, hematocrit 47, MCV 85 and platelet count 189,000. His serum sodium was 143, potassium 3.2, chloride 105, bicarbonate 26, anion gap of 12, BUN 17, creatinine 1.3, estimated GFR was 63 mL per minute, his glucose 122, calcium was 9.1, magnesium was 1.8. Total bilirubin, AST, ALT, alkaline phosphatase were normal. His CK was 249, beta natriuretic peptide was 51. Total protein was 7.2, albumin was 3.8. His prothrombin time was less than 9.3, INR of 0.9, aPTT was 25 and D-dimer was 0.26. His toxic screen was negative. Urinalysis was essentially unremarkable. His influenza A and B were negative. His chest x-ray showed there are no confluent infiltrates. There is no pneumothorax or pleural effusion. The heart is not enlarged. IMPRESSION: In summary, this is a 33-year-old male patient, who was admitted with what seemed to be acute bronchitis and exacerbation of chronic obstructive pulmonary disease. The patient has been smoking since he was 9 years old, has been smoking consistently a pack a day. PLAN: My plan is to switch his IV antibiotic to Levaquin. Continue with steroids, bronchodilators. I also will add Singulair and Mucinex and check his urine for legionella antigen as well as Streptococcus antigen. RITA EDMONDS MD DR: SAMMY/billy JOB#: [id number] / [id number]
[2018-11-07] MEDS: IV RINGERS SOLUTION,LACTATED 1,000 ML IV SCH (18:00)
[2018-11-07 19:57] VITALS: BP 116/56
[2018-11-07] MEDS ORDERED: MONTELUKAST 10 MG TABLET. PO SCH (21:00)
[2018-11-07 23:00] VITALS: BP 113/70
[2018-11-08] MEDS: guaiFENesin DM 200MG/20MG 10 ML SYRUP PO PRN (00:19)
[2018-11-08] MEDS: methylPREDNISolone SOD SUCC PF 125 MG/2 ML VIAL. IV SCH ×2 (00:31→08:06)
[2018-11-08] MEDS: IPRATRPIUM/ALBUTEROL 0.5/2.5MG 3 ML NEBU. NEB SCH (04:45)
[2018-11-08] MEDS: IV RINGERS SOLUTION,LACTATED 1,000 ML IV SCH (05:48)
[2018-11-08 05:54] VITALS: BP 108/67
[2018-11-08 06:45] LABS: BASO % 0 % (0-3); EOS % 0 % (0-3); HEMATOCRIT 39.3 % (39.0-53.0); LYMPH % 11 % (24-48); MEAN CORPUSCULAR HEMOGLOBIN 28 pg (25-35); MEAN CORPUSCULAR HGB CONC 33 g/dL (31-37); MEAN CORPUSCULAR VOLUME 84 fL (79-100); MONO # 0.5 x10^3/uL (0.0-1.1); MONO % 3 % (0-9); NEUT % 86 % (31-73); PLATELET COUNT 183 x10^3/uL (140-400); RED BLOOD COUNT 4.67 x10^6/uL (4.30-5.70); RED CELL DISTRIBUTION WIDTH 14.7 % (11.5-14.5); WHITE BLOOD COUNT 17.5 x10^3/uL (4.0-11.0)
[2018-11-08] MEDS ORDERED: CALCIUM CARBONATE 500 MG TAB.CHEW PO PRN (06:45)
[2018-11-08] MEDS ORDERED: ONDANSETRON ODT 4 MG TAB.RAPDIS PO PRN (06:45)
[2018-11-08 07:04] LABS: CALCIUM 9.3 mg/dL (8.5-10.1); CREATININE 0.9 mg/dL (0.7-1.3); GFR 97.2; TOTAL BILIRUBIN 0.2 mg/dL (0.2-1.0); TOTAL PROTEIN 5.9 g/dL (6.4-8.2)
--- NOTE | 2018-11-08 07:20 | PDOC2 ---
CARDIAC CONSULT DATE OF CONSULT Date Of Consult DATE: 11/08/18 TIME: 07:16 REASON FOR CONSULT Reason for Consult abnormal EKG REFERRING PHYSICIAN Referring Physician Dr. Gordillo SOURCE Source: Chart review, Patient HPI History of Present Illness This is a 33 yo male who presented secondary to ongoing shortness of breath, cough, and wheezing. Patient was seen in the ED last week for body aches, fevers, cough, cold, congestion, and sore throat. Was treated with Zpack and steroids. Patient reports feeling better overall, but shortness of breath, cough, and wheezing has progressed. Came back to the ED for further evaluation and treatment. No dizziness, diaphoresis, palpitations, chest pain, or nausea/vomiting. PAST MEDICAL HISTORY Cardiovascular: No pertinent hx Pulmonary: No pertinent hx GI: No pertinent hx Heme/Onc: No pertinent hx Hepatobiliary: No pertinent hx Psych: No pertinent hx Musculoskeletal: No pertinent hx Rheumatologic: No pertinent hx Infectious disease: No pertinent hx ENT: No pertinent hx Renal/: No pertinent hx Endocrine: No pertinent hx Dermatology: No pertinent hx PAST SURGICAL HISTORY Past Surgical History: Hernia Repair FAMILY HISTORY Family History: Diabetes SOCIAL HISTORY Smoke: <1 pack per day ALCOHOL: none Drugs: None Lives: with Family CURRENT MEDICATIONS Current Medications Current Medications Albuterol/ Ipratropium (Duoneb) 3 ml STK-MED ONCE .ROUTE ; Start 11/06/18 at 23:29; Stop 11/06/18 at 23:30; Status DC Lactated Ringer's 1,000 ml @ 1,000 mls/hr Q1H IV Last administered on 11/07/18at 00:07; Start 11/06/18 at 23:30; Stop 11/07/18 at 00:29; Status DC Albuterol/ Ipratropium (Duoneb) 3 ml 1X ONCE NEB Last administered on 11/06/18at 23:43; Start 11/06/18 at 23:30; Stop 11/06/18 at 23:45; Status DC Methylprednisolone Sodium Succinate (SOLU-Medrol 125MG VIAL) 125 mg 1X ONCE IV Last administered on 11/07/18at 00:08; Start 11/06/18 at 23:45; Stop 11/06/18 at 23:46; Status DC Azithromycin (Zithromax) 500 mg 1X ONCE PO ; Start 11/06/18 at 23:45; Stop 11/06/18 at 23:46; Status DC Diphenhydramine HCl (Benadryl) 50 mg 1X ONCE PO Last administered on 11/07/18at 00:08; Start 11/06/18 at 23:45; Stop 11/06/18 at 23:46; Status DC Lactated Ringer's 1,000 ml @ 2,000 mls/hr 1X ONCE IV Last administered on 11/07/18at 01:09; Start 11/07/18 at 01:00; Stop 11/07/18 at 14:49; Status DC Vancomycin HCl 1 gm/Sodium Chloride 250 ml @ 250 mls/hr 1X ONCE IV Last administered on 11/07/18at 01:00; Start 11/07/18 at 01:00; Stop 11/07/18 at 01:59; Status DC Albuterol/ Ipratropium (Duoneb) 3 ml 1X ONCE NEB Last administered on 11/07/18at 00:43; Start 11/07/18 at 00:45; Stop 11/07/18 at 00:50; Status DC Vancomycin HCl (Vancomycin) 1 gm STK-MED ONCE .ROUTE ; Start 11/07/18 at 00:44; Stop 11/07/18 at 00:45; Status DC Sodium Chloride 250 ml @ As Directed STK-MED ONCE .ROUTE ; Start 11/07/18 at 00:45; Stop 11/07/18 at 00:46; Status DC Ondansetron HCl (Zofran) 4 mg PRN Q4HRS PRN IV NAUSEA/VOMITING Last administered on 11/07/18at 20:37; Start 11/07/18 at 01:00; Stop 11/08/18 at 00:59; Status DC Acetaminophen (Tylenol) 650 mg PRN Q4HRS PRN PO FEVER; Start 11/07/18 at 01:00; Stop 11/08/18 at 00:59; Status DC Albuterol/ Ipratropium (Duoneb) 3 ml RTQID NEB Last administered on 11/07/18at 15:18; Start 11/07/18 at 08:00; Stop 11/08/18 at 07:59 Azithromycin (Zithromax) 250 mg DAILY PO Last administered on 11/07/18at 08:44; Start 11/07/18 at 09:00; Stop 11/07/18 at 14:50; Status DC Vancomycin HCl (Vanco Per Pharmacy) 1 each PRN DAILY PRN MC SEE COMMENTS; Start 11/07/18 at 01:00; Stop 11/07/18 at 06:26; Status DC Vancomycin HCl 1 gm/Sodium Chloride 250 ml @ 250 mls/hr ONCE ONCE IV Last administered on 11/07/18at 03:28; Start 11/07/18 at 03:00; Stop 11/07/18 at 03:59; Status DC Lactated Ringer's 1,000 ml @ 200 mls/hr Q5H IV Last administered on 11/07/18at 03:39; Start 11/07/18 at 09:00; Stop 11/07/18 at 14:49; Status DC Diphenhydramine HCl (Benadryl) 25 mg QID PO ; Start 11/07/18 at 09:00; Stop 11/07/18 at 09:00; Status DC Methylprednisolone Sodium Succinate (SOLU-Medrol 125MG VIAL) 125 mg DAILY IV Last administered on 11/07/18at 08:45; Start 11/07/18 at 09:00; Stop 11/07/18 at 14:51; Status DC Nicotine (Nicoderm Cq 21mg) 1 patch 1X ONCE TD Last administered on 11/07/18at 01:00; Start 11/07/18 at 01:00; Stop 11/07/18 at 02:28; Status DC Morphine Sulfate (Morphine 2mg Syringe) 2 mg 1X ONCE IV Last administered on 11/07/18at 02:18; Start 11/07/18 at 01:45; Stop 11/07/18 at 02:29; Status DC Throat Lozenges (Cepacol Sore Throat Lozenge) 1 olayinka PRN Q2HR PRN PO SORE THROAT Last administered on 11/07/18at 08:44; Start 11/07/18 at 03:00 Promethazine HCl/ Codeine (Phenergan With Codeine Oral Syrup) 5 ml PRN Q6HRS PRN PEG COUGH Last administered on 11/07/18at 18:00; Start 11/07/18 at 03:30 Sodium Chloride 250 ml @ As Directed STK-MED ONCE .ROUTE ; Start 11/07/18 at 03:22; Stop 11/07/18 at 03:23; Status DC Vancomycin HCl (Vancomycin) 1 gm STK-MED ONCE .ROUTE ; Start 11/07/18 at 03:22; Stop 11/07/18 at 03:23; Status DC Promethazine HCl/ Codeine (Phenergan With Codeine Oral Syrup) 5 ml PRN Q6HRS PRN PEG COUGH; Start 11/07/18 at 03:45; Status Cancel Diphenhydramine HCl (Benadryl) 50 mg 1X ONCE IVP Last administered on 11/07/18at 05:31; Start 11/07/18 at 05:30; Stop 11/07/18 at 05:46; Status DC Vancomycin HCl (Vanco Per Pharmacy) 1 each PRN DAILY PRN MC SEE COMMENTS Last administered on 11/07/18at 07:26; Start 11/07/18 at 06:30; Stop 11/07/18 at 14:51; Status DC Vancomycin HCl (Vancomycin Trough Level) 1 each 1X ONCE MC ; Start 11/08/18 at 12:30; Stop 11/08/18 at 12:30; Status DC Vancomycin HCl 1.5 gm/Sodium Chloride 500 ml @ 250 mls/hr Q12H IV Last administered on 11/07/18at 13:01; Start 11/07/18 at 13:00; Stop 11/07/18 at 14:50; Status DC Lactobacillus Rhamnosus (Culturelle) 1 cap BID PO Last administered on at 21:27; Start 11/07/18 at 09:00 Potassium Chloride (Klor-Con) 40 meq 1X ONCE PO Last administered on 11/07/18at 08:53; Start 11/07/18 at 08:30; Stop 11/07/18 at 08:31; Status DC Diphenhydramine HCl (Benadryl) 25 mg QID IVP Last administered on 11/07/18at 21:27; Start 11/07/18 at 09:00 Guaifenesin (Robitussin Dm) 5 ml PRN Q4HRS PRN PO COUGH Last administered on 11/08/18at 00:19; Start 11/07/18 at 10:15 Artificial Tears (Artificial Tears) 1 drop PRN Q15MIN PRN OU DRY EYE Last administered on 11/07/18at 13:33; Start 11/07/18 at 13:30 Lactated Ringer's 1,000 ml @ 100 mls/hr Q10H IV Last administered on 11/08/18at 05:48; Start 11/07/18 at 19:00 Methylprednisolone Sodium Succinate (SOLU-Medrol 125MG VIAL) 60 mg Q8H IV Last administered on 11/08/18at 00:31; Start 11/07/18 at 17:00 Levofloxacin/ Dextrose 150 ml @ 150 mls/hr Q24H IV Last administered on 11/07/18at 17:10; Start 11/07/18 at 17:00 Montelukast Sodium (Singulair) 10 mg QHS PO Last administered on 11/07/18 21:26; Start 11/07/18 at 21:00 Nicotine (Nicoderm Cq 21mg) 1 patch 1X ONCE TD Last administered on 11/07/18at 21:28; Start 11/07/18 at 21:30; Stop 11/07/18 at 21:31; Status DC Ondansetron HCl (Zofran Odt) 4 mg PRN Q8HRS PRN PO NAUSEA/VOMITING; Start 11/08/18 at 06:45 Calcium Carbonate/ Glycine (Tums) 500 mg PRN AFTMEALHC PRN PO INDIGESTION; Start 11/08/18 at 06:45 Active Scripts Active Azithromycin Tablet (Azithromycin) 250 Mg Tablet 1 Pkg PO UD Take 2 tablets today and then one tablet every day thereafter for the next 4 days ALLERGIES Allergies: Coded Allergies: Penicillins (Verified Allergy, Intermediate, 04/28/18) doxycycline (Verified Allergy, Intermediate, 04/28/18) ROS Review of Systems 14 point ROS conducted with pertinent positives noted above in HPI PHYSICAL EXAM General: Alert, Oriented X3, Cooperative, No acute distress HEENT: Atraumatic, Mucous membr. moist/pink Lungs: Other (fine expiratory wheezes) Heart: Regular rate, Normal S1, Normal S2 Abdomen: Soft Extremities: No edema, Normal pulses Skin: No breakdown Neuro: Normal speech, Sensation intact Psych/Mental Status: Mental status NL, Mood NL MUSCULOSKELETAL: No deformity, No swelling VITALS Vital Signs Vital Signs Date Time Temp Pulse Resp B/P (MAP) Pulse Ox O2 Delivery O2 Flow Rate FiO2 11/08/18 05:54 98.0 79 20 108/67 (81) 94 Room Air LABS LABS Laboratory Tests Test 11/06/18 23:45 11/06/18 23:59 11/07/18 06:46 11/07/18 13:04 White Blood Count 13.0 x10^3/uL (4.0-11.0) Red Blood Count 5.54 x10^6/uL (4.30-5.70) Hemoglobin 15.7 g/dL (13.0-17.5) Hematocrit 47.0 % (39.0-53.0) Mean Corpuscular Volume 85 fL (79-100) Mean Corpuscular Hemoglobin 28 pg (25-35) Mean Corpuscular Hemoglobin Concent 34 g/dL (31-37) Red Cell Distribution Width 15.0 % (11.5-14.5) Platelet Count 189 x10^3/uL (140-400) Neutrophils (%) (Auto) 57 % (31-73) Lymphocytes (%) (Auto) 34 % (24-48) Monocytes (%) (Auto) 6 % (0-9) Eosinophils (%) (Auto) 3 % (0-3) Basophils (%) (Auto) 1 % (0-3) Neutrophils # (Auto) 7.4 x10^3uL (1.8-7.7) Lymphocytes # (Auto) 4.4 x10^3/uL (1.0-4.8) Monocytes # (Auto) 0.8 x10^3/uL (0.0-1.1) Eosinophils # (Auto) 0.3 x10^3/uL (0.0-0.7) Basophils # (Auto) 0.1 x10^3/uL (0.0-0.2) Prothrombin Time < 9.3 SEC (9.4-11.4) Prothromb Time International Ratio 0.9 (0.9-1.1) Activated Partial Thromboplast Time 25 SEC (23-33) D-Dimer (Anne-Marie) 0.26 mg/L (0.00-0.50) Sodium Level 143 mmol/L (136-145) Potassium Level 3.2 mmol/L (3.5-5.1) Chloride Level 105 mmol/L (98-107) Carbon Dioxide Level 26 mmol/L (21-32) Anion Gap 12 (6-14) Blood Urea Nitrogen 17 mg/dL (8-26) Creatinine 1.3 mg/dL (0.7-1.3) Estimated GFR (Cockcroft-Gault) 63.6 Glucose Level 122 mg/dL (70-99) Lactic Acid Level 2.4 mmol/L (0.4-2.0) 4.9 mmol/L (0.4-2.0) 2.8 mmol/L (0.4-2.0) Calcium Level 9.1 mg/dL (8.5-10.1) Magnesium Level 1.8 mg/dL (1.8-2.4) Total Bilirubin 0.4 mg/dL (0.2-1.0) Direct Bilirubin 0.1 mg/dL (0.0-0.2) Aspartate Amino Transf (AST/SGOT) 23 U/L (15-37) Alanine Aminotransferase (ALT/SGPT) 35 U/L (16-63) Alkaline Phosphatase 85 U/L (46-116) Creatine Kinase 249 U/L (39-308) Troponin I Quantitative < 0.017 ng/mL (0-0.055) OY-Btc-O-Type Natriuretic Peptide 51 pg/mL (0-124) Total Protein 7.2 g/dL (6.4-8.2) Albumin 3.8 g/dL (3.4-5.0) Lipase 91 U/L (73-393) Thyroid Stimulating Hormone (TSH) 3.396 uIU/mL (0.358-3.740) Influenza Type A (Rapid) Negative (NEGATIVE) Influenza Type B (Rapid) Negative (NEGATIVE) Test 11/08/18 05:50 11/08/18 05:58 Sodium Level 143 mmol/L (136-145) Potassium Level 4.0 mmol/L (3.5-5.1) Chloride Level 108 mmol/L (98-107) Carbon Dioxide Level 27 mmol/L (21-32) Anion Gap 8 (6-14) Blood Urea Nitrogen 12 mg/dL (8-26) Creatinine 0.9 mg/dL (0.7-1.3) Estimated GFR (Cockcroft-Gault) 97.2 BUN/Creatinine Ratio 13 (6-20) Glucose Level 149 mg/dL (70-99) Calcium Level 9.3 mg/dL (8.5-10.1) Total Bilirubin 0.2 mg/dL (0.2-1.0) Aspartate Amino Transf (AST/SGOT) 25 U/L (15-37) Alanine Aminotransferase (ALT/SGPT) 31 U/L (16-63) Alkaline Phosphatase 69 U/L (46-116) Total Protein 5.9 g/dL (6.4-8.2) Albumin 3.0 g/dL (3.4-5.0) Albumin/Globulin Ratio 1.0 (1.0-1.7) White Blood Count 17.5 x10^3/uL (4.0-11.0) Red Blood Count 4.67 x10^6/uL (4.30-5.70) Hemoglobin 13.0 g/dL (13.0-17.5) Hematocrit 39.3 % (39.0-53.0) Mean Corpuscular Volume 84 fL (79-100) Mean Corpuscular Hemoglobin 28 pg (25-35) Mean Corpuscular Hemoglobin Concent 33 g/dL (31-37) Red Cell Distribution Width 14.7 % (11.5-14.5) Platelet Count 183 x10^3/uL (140-400) Neutrophils (%) (Auto) 86 % (31-73) Lymphocytes (%) (Auto) 11 % (24-48) Monocytes (%) (Auto) 3 % (0-9) Eosinophils (%) (Auto) 0 % (0-3) Basophils (%) (Auto) 0 % (0-3) Neutrophils # (Auto) 15.0 x10^3uL (1.8-7.7) Lymphocytes # (Auto) 2.0 x10^3/uL (1.0-4.8) Monocytes # (Auto) 0.5 x10^3/uL (0.0-1.1) Eosinophils # (Auto) 0.0 x10^3/uL (0.0-0.7) Basophils # (Auto) 0.0 x10^3/uL (0.0-0.2) ASSESSMENT/PLAN Assessment/Plan 1. Dyspnea, cough, wheezing 2. Leukocytosis, lactic acidosis 3. Abnormal EKG; SR with BBB. Otherwise, no significant acute abnormalities. 4. Hypokalemia; resolved 5. Tobaccoism; discussed encouraged cessation Recommendations Lipids Lung optimization as per primary care No further cardiac workup warrant at this time. Please call with questions DIANA COLUNGA APRN Nov 08, 2018 07:20
[2018-11-08 07:45] LABS: % ATYL 2 % (0-0); % BANDS 6 % (0-9); % LYMPHS 16 % (24-48); % MONOS 4 % (0-10); % SEGS 72 % (35-66); PLT ESTIMATE ADEQUATE (ADEQUATE); TOXIC GRANULATION PRESENT
--- NOTE | 2018-11-08 07:50 | EKG ---
[address] [address] Test Date: 2018-11-07 Test Time: 00:06:00 Pat Name: GENTRY SANABRIA Department: Room: Gender: M [employer] Manager: JACK : 1985 Requested By: PRITI MCKENZIE Order Number: [id number] Reading MD: Measurements Intervals [place] Rate: 112 P: 34 SC: 122 QRS: 49 QRSD: 92 T: 46 QT: 320 QTc: 438 Interpretive Statements SINUS TACHYCARDIA INCOMPLETE RIGHT BUNDLE BRANCH BLOCK QRS(T) CONTOUR ABNORMALITY CONSIDER ANTEROLATERAL MYOCARDIAL DAMAGE POSSIBLY ABNORMAL ECG RI6.01 No previous ECG available for comparison
[2018-11-08] MEDS: diphenhydrAMINE 50 MG/ML VIAL IVP SCH (08:06)
[2018-11-08] MEDS: LACTOBACILLUS RHAMNOSUS GG 1 CAPSULE. PO SCH (08:06)
[2018-11-08 10:47] VITALS: BP 124/70
--- NOTE | 2018-11-09 01:16 | DS ---
DATE OF DISCHARGE: 11/08/2018 HOSPITAL COURSE: The patient is a 33-year-old male patient who came to the Emergency Room with recurrent bouts of cough with shortness of breath, wheezing. He was seen in the Emergency Room and we did start him on IV steroids, IV antibiotic and he did actually very well. His cough is much improved today, has had no more fever, chills or rigors. No aches and pains. PHYSICAL EXAMINATION: GENERAL: When I examined him this morning, he was resting, flat, comfortably in bed, in no apparent respiratory distress. No pallor, jaundice, cyanosis, or thyromegaly. No jugular venous distention. No limb edema. VITAL SIGNS: His heart rate was 82, blood pressure was 124/70, temperature was 98, respiratory rate 20 and oxygen saturation was 94% on room air. HEAD, EYES, EARS, NOSE AND THROAT: Normocephalic, atraumatic. NECK: Supple. HEART: Showed normal first and second heart sounds. No gallop, rub or murmur. CHEST: Clear to auscultation. No crepitation or rhonchi. ABDOMEN: Distended, soft, nontender. NEUROLOGIC: He is awake, alert, responding appropriately. All cranial nerves intact. He moves extremities without difficulty. His intake was 4850, output was 1550. LABORATORY DATA: This morning showed his serum sodium was 143, potassium 4, chloride 108, bicarbonate 27, anion gap of 8, BUN 12, creatinine 0.9, estimated GFR was 97 mL per minute. His glucose was 149, calcium was 9.3. Total bilirubin, AST, ALT, alkaline phosphatase were normal. Total protein was 5.9, albumin was 3. TSH was normal at 3.39. His lactic acid came down to 2.8 as of yesterday. His white cell count is 17,500, hemoglobin 13, hematocrit 39, MCV 84 and platelet count of 130,000. His D-dimer was 0.26. His influenza A and B were negative. Toxic screen was negative. Urinalysis was unremarkable. DISCHARGE MEDICATIONS: The patient was discharged home to continue on Levaquin 750 mg once a day for 7 days and tapering course of steroids and Robitussin-DM. FINAL DISCHARGE DIAGNOSES: 1. Acute bronchitis. 2. Chronic obstructive pulmonary disease exacerbation. 3. Hypokalemia, resolved. RITA EDMONDS MD DR: Romi JOB#: [id number] / [id number]
== END 2018-11-08 14:31 | disposition home or self-care (01) | DRG 202 ==
LOC: ER 23:19 → 1 SOUTH 11-07 06:29
PROVIDERS: ADMIT Internal Medicine; ATTEND Internal Medicine
DX: J20.9 Acute bronchitis, unspecified (principal); J44.0 Chronic obstructive pulmonary disease with (acute) lower respiratory infection; E87.2 Acidosis; J44.1 Chronic obstructive pulmonary disease with (acute) exacerbation; R65.10 Systemic inflammatory response syndrome (SIRS) of non-infectious origin without acute organ dysfunction; E87.6 Hypokalemia; F17.210 Nicotine dependence, cigarettes, uncomplicated; Z82.49 Family history of ischemic heart disease and other diseases of the circulatory system; Z83.3 Family history of diabetes mellitus; Z88.0 Allergy status to penicillin; Z87.01 Personal history of pneumonia (recurrent); Z79.899 Other long term (current) drug therapy; Z88.8 Allergy status to other drugs, medicaments and biological substances
CPT/HCPCS: 36415; 71046; 80048; 80053; 80061; 80076; 80307; 81001; 82550; 83605; 83690; 83735; 83880; 84443; 84484; 85007; 85025; 85379; 85610; 85730; 87040; 87449; 87804; 93005; 94640; 96361; 96365; 96366; 96375; 99406; G0238; J0456; J1200; J1956; J2270; J2405; J2930; J3370; J7040; J7050; J7120; J7620; Q0163; 99285-25

== ENCOUNTER 2019-10-05 16:20 | Emergency (ER) | payer SELFPAY ==
[~2019-10-05] VITALS: Ht 180.3 cm; Wt 90.0 kg
--- NOTE | 2019-10-05 16:43 | PHYS DOC ---
Past History Past Medical History: Asthma, Bronchitis, Pneumonia Past Surgical History: Other Additional Past Surgical Histo: Inguinal hernia repair Smoking: Cigarettes Alcohol Use: None Drug Use: None General Adult EDM: Chief Complaint: HEADACHE HPI: HPI: 34-year-old male presents with headache, vomiting, and body aches. He started feeling ill yesterday right after dinner. Last night he took about a third of a bottle of the children's DM cough syrup. He has felt worse since that time. He states that he felt drunk overnight and just did not have good coordination. That is improved some today, but he still has upset stomach with a headache. He had several possible of vomiting. Denies diarrhea. He also had chills and sweats, but did not check to see if he had a fever. No fever on arrival. Review of Systems: Review of Systems: Constitutional: Chills Eyes: Denies change in visual acuity HENT: Denies nasal congestion or sore throat Respiratory: Denies cough or shortness of breath Cardiovascular: Denies chest pain or edema GI: nausea, vomiting. Denies abdominal pain, bloody stools or diarrhea : Denies dysuria Musculoskeletal: Denies back pain or joint pain Integument: Denies rash Neurologic: Headache. Denies focal weakness or sensory changes Endocrine: Denies polyuria or polydipsia Lymphatic: Denies swollen glands Psychiatric: Denies depression or anxiety Heart Score: Risk Factors: Risk Factors: DM, Current or recent (<one month) smoker, HTN, HLP, family history of CAD, obesity. Risk Scores: Score 0 - 3: 2.5% MACE over next 6 weeks - Discharge Home Score 4 - 6: 20.3% MACE over next 6 weeks - Admit for Clinical Observation Score 7 - 10: 72.7% MACE over next 6 weeks - Early Invasive Strategies Current Medications: Current Meds: Current Medications Medications (Trade) Dose Ordered Sig/Irma Start Time Stop Time Status Last Admin Dose Admin Ondansetron HCl (Zofran) 4 mg 1X ONCE 10/05/19 16:45 10/05/19 16:46 Sodium Chloride 1,000 ml @ 1,000 mls/hr 1X ONCE 10/05/19 16:45 10/05/19 17:44 Allergies: Allergies: Allergies Coded Allergies Type Severity Reaction Last Updated Verified Penicillins Allergy Intermediate 04/28/18 Yes doxycycline Allergy Intermediate 04/28/18 Yes Physical Exam: PE: Constitutional: Well developed, well nourished, no acute distress, non-toxic appearance. [] HENT: Normocephalic, atraumatic, bilateral external ears normal, oropharynx dry, no oral exudates, nose normal. [] Eyes: PERRLA, EOMI, conjunctiva normal, no discharge. [] Neck: Normal range of motion, no tenderness, supple, no stridor. [] Cardiovascular:Heart rate regular rhythm, no murmur [] Lungs & Thorax: Bilateral breath sounds clear to auscultation [] Abdomen: Bowel sounds normal, soft, no tenderness, no masses, no pulsatile masses. [] Skin: Warm, dry, no erythema, no rash. [] Back: No tenderness, no CVA tenderness. [] Extremities: No tenderness, no cyanosis, no clubbing, ROM intact, no edema. [] Neurologic: Alert and oriented X 3, normal motor function, normal sensory function, no focal deficits noted. [] Psychologic: Affect normal, judgement normal, mood normal. [] Current Patient Data: Vital Signs: Vital Signs Date Time Temp Pulse Resp B/P (MAP) Pulse Ox O2 Delivery O2 Flow Rate FiO2 10/05/19 16:28 98.5 95 16 103/53 (70) 96 Room Air EKG: EKG: [] Radiology/Procedures: Radiology/Procedures: [] Course & Med Decision Making: Course & Med Decision Making Pertinent Labs and Imaging studies reviewed. (See chart for details) The patient's labs significant for an elevated white count. Review of his chart shows that this is similar to his previous levels. No other significant lab findings. For the patient's headache, he was given 1 L normal saline, 25 mg of Benadryl IV, 30 mg of Toradol IV, and 10 mg of Reglan IV. He is feeling better at this time. I think his other symptoms are related to taking too much cough medicine. I have advised him to strictly follow the label guidelines. He is stable for discharge at this time. [] Dragon Disclaimer: Dragon Disclaimer: This electronic medical record was generated, in whole or in part, using a voice recognition dictation system. Departure Departure: Impression: Primary Impression: Headache Qualified Codes: R51 - Headache Additional Impression: Accidental medication overdose Qualified Codes: T50.901A - Poisoning by unspecified drugs, medicaments and biological substances, accidental (unintentional), initial encounter Disposition: 01 HOME/RESIDENCE PRIOR TO ADM Condition: STABLE Referrals: PCPISABELL (PCP) Patient Instructions: General Headache Without Cause, [id number] Scripts No Active Prescriptions or Reported Meds NIK HAMILTON DO October 05, 2019 16:43
[2019-10-05] MEDS ORDERED: IV NORMAL SALINE 1,000ML 1,000 ML IV ONE (16:45)
[2019-10-05] MEDS ORDERED: ONDANSETRON PF 4 MG/2 ML VIAL. IVP ONE (16:45)
[2019-10-05] MEDS ORDERED: diphenhydrAMINE 50 MG/ML VIAL ONE (16:54)
[2019-10-05] MEDS ORDERED: KETOROLAC 30 MG/ML VIAL. ONE (16:55)
[2019-10-05] MEDS ORDERED: METOCLOPRAMIDE HCL 10 MG/2 ML VIAL. ONE (16:55)
[2019-10-05 17:00] LABS: BASO % 0 % (0-3); EOS % 0 % (0-3); HEMATOCRIT 47.4 % (39.0-53.0); HEMOGLOBIN 15.6 g/dL (13.0-17.5); LYMPH # 1.9 x10^3/uL (1.0-4.8); LYMPH % 11 % (24-48); MEAN CORPUSCULAR HEMOGLOBIN 29 pg (25-35); MEAN CORPUSCULAR HGB CONC 33 g/dL (31-37); MEAN CORPUSCULAR VOLUME 87 fL (79-100); MONO % 6 % (0-9); NEUT # 13.6 x10^3uL (1.8-7.7); NEUT % 82 % (31-73); PLATELET COUNT 164 x10^3/uL (140-400); RED BLOOD COUNT 5.44 x10^6/uL (4.30-5.70); RED CELL DISTRIBUTION WIDTH 14.5 % (11.5-14.5); WHITE BLOOD COUNT 16.5 x10^3/uL (4.0-11.0)
[2019-10-05] MEDS ORDERED: METOCLOPRAMIDE HCL 10 MG/2 ML VIAL. IVP ONE (17:00)
[2019-10-05] MEDS ORDERED: KETOROLAC 30 MG/ML VIAL. IVP ONE (17:00)
[2019-10-05] MEDS ORDERED: diphenhydrAMINE 50 MG/ML VIAL IVP ONE (17:00)
[2019-10-05 17:28] LABS: CALCIUM 9.4 mg/dL (8.5-10.1); CREATININE 1.3 mg/dL (0.7-1.3); GFR 63.2; POTASSIUM 3.8 mmol/L (3.5-5.1)
[2019-10-05 17:34] LABS: ALBUMIN 3.8 g/dL (3.4-5.0); ALBUMIN/GLOBULIN RATIO 1.2 (1.0-1.7); TOTAL BILIRUBIN 0.7 mg/dL (0.2-1.0); TOTAL PROTEIN 7.1 g/dL (6.4-8.2)
[2019-10-05 17:52] VITALS: BP 112/65
[2019-10-05 18:08] LABS: % BANDS 3 % (0-9); % EOS 1 % (0-5); % LYMPHS 13 % (24-48); % MONOS 4 % (0-10); % SEGS 79 % (35-66); PLT ESTIMATE ADEQUATE (ADEQUATE)
== END 2019-10-05 17:50 | disposition home or self-care (01) ==
LOC: ER 16:20
DX: T48.4X1A Poisoning by expectorants, accidental (unintentional), initial encounter (principal); R51 Headache; R11.2 Nausea with vomiting, unspecified; J45.909 Unspecified asthma, uncomplicated; F12.10 Cannabis abuse, uncomplicated; Z88.0 Allergy status to penicillin; Z88.1 Allergy status to other antibiotic agents; Y92.89 Other specified places as the place of occurrence of the external cause
CPT/HCPCS: 36415; 80053; 85007; 85025; 96361; 96374; 96375; 99284; J1200; J1885; J2405; J2765; J7030

== ENCOUNTER 2019-10-07 21:01 | Emergency (ER) | payer SELFPAY ==
[~2019-10-07] VITALS: Ht 180.3 cm; Wt 90.0 kg
--- NOTE | 2019-10-07 21:11 | PHYS DOC ---
Past History Past Medical History: Asthma, Bronchitis, Pneumonia Past Surgical History: Other Additional Past Surgical Histo: Inguinal hernia repair Smoking: Cigarettes Alcohol Use: None Drug Use: None General Adult HPI: HPI: "...I was here the other day...but I still have a headache... feels like a fever..and sore throat....".." Maybe I got that COVID virus...my throat is really sore to day..." Patient is a 34 year old male who presents with hx of headache, cough and sore throat. Patient was seen previously on 10/06 for similar complaints. Patient currently requesting COVID testing and a shot of Toradol. Patient denies history immunosuppression. Patient denies any travel outside the [place] area. Patient does have anterior chain adenopathy and injection of the tonsillar pillars. Patient has had a history of prior migraine headaches. Patient does not get flu vaccination. Review of Systems: Review of Systems: Constitutional: Complaints of fever Eyes: Denies change in visual acuity HENT: Complaints of sore throat Respiratory: Denies cough or shortness of breath Cardiovascular: Denies chest pain or edema GI: Denies abdominal pain, nausea, vomiting, bloody stools or diarrhea : Denies dysuria Musculoskeletal: Denies back pain or joint pain Integument: Denies rash Neurologic: Denies headache, focal weakness or sensory changes Endocrine: Denies polyuria or polydipsia Lymphatic: Denies swollen glands Psychiatric: Denies depression or anxiety Heart Score: Risk Factors: Risk Factors: DM, Current or recent (<one month) smoker, HTN, HLP, family history of CAD, obesity. Risk Scores: Score 0 - 3: 2.5% MACE over next 6 weeks - Discharge Home Score 4 - 6: 20.3% MACE over next 6 weeks - Admit for Clinical Observation Score 7 - 10: 72.7% MACE over next 6 weeks - Early Invasive Strategies Family History: Family History: Noncontributory Current Medications: Current Meds: See nursing for home medications Allergies: Allergies: Allergies Coded Allergies Type Severity Reaction Last Updated Verified Penicillins Allergy Intermediate 04/28/18 Yes doxycycline Allergy Intermediate 04/28/18 Yes Physical Exam: PE: Constitutional: Moderate acute distress, non-toxic appearance. [] HENT: Normocephalic, atraumatic, bilateral external ears normal, oropharynx moist, injected no oral exudates, nose normal. [] Eyes: PERRLA, EOMI, conjunctiva normal, no discharge. [] Neck: Normal range of motion, no tenderness, supple, no stridor. [Adenopathy anterior cervical chain Cardiovascular:Heart rate regular rhythm, no murmur [] Lungs & Thorax: Bilateral breath sounds equal apex with few scattered wheezes auscultation [] Abdomen: Bowel sounds normal, soft, no tenderness, no masses, no pulsatile masses. [] Skin: Warm, dry, no erythema, no rash. Tattoos Back: No tenderness, no CVA tenderness. [] Extremities: No tenderness, no cyanosis, no clubbing, ROM intact, no edema. [] Neurologic: Alert and oriented X 3, normal motor function, normal sensory function, no focal deficits noted. [] Psychologic: Affect anxious, judgement normal, mood normal. [] EKG: EKG: My interpretation EKG shows a sinus rhythm at 88 bpm. No findings acute STEMI with contralateral changes. [] Radiology/Procedures: Radiology/Procedures: [][place] [address] IMAGING REPORT Signed PATIENT: GENTRY SANABRIA ACCOUNT: [id number] : 1985 LOCATION: ER AGE: 34 SEX: M EXAM STATUS: REG ER ORD. PHYSICIAN: PRITI MCKENZIE MD REASON: rashid, no improvement since prior visit PROCEDURE: CT HEAD WO CONTRAST CT HEAD WO CONTRAST Date: 10/07/2019 9:12 PM Clinical Indication: Reason: rashid, no improvement since prior visit / Spl. Instructions: / History: Comparison: None. Technique: 5 mm axial tomographic images were obtained of the head without contrast. These were viewed on brain and bone windows. One or more of the following dose reduction techniques were utilized: Automated exposure control (AEC), Adjustment of mA and/or kV according to patient size, Use of iterative reconstruction technique such as ASiR, CT scan done according to ALARA and image gently/image wisely Findings: The brain parenchyma is normal in attenuation. No intra- or extra-axial mass or fluid collection. No acute hemorrhage. The ventricles are normal in size, shape, and morphology. The quinonez-white matter junction is normal. The subarachnoid cisterns are patent. The visualized paranasal sinuses are normal. The visualized portions of the orbits and globes are normal. The mastoid air cells are clear. The public relations account supervisor topogram shows no lytic lesion or fracture. Impression: No acute intracranial process. Electronically signed by: Jerry Grover MD (10/07/2019 9:44 PM) [id number] DICTATED AND SIGNED BY: JERRY GROVER MD DATE: 10/07/192143 CC: PRITI MCKENZIE MD; PCP,NO ~ [address] [address] IMAGING REPORT Signed PATIENT: GENTRY SANABRIA ACCOUNT: [id number] : 1985 LOCATION: ER AGE: 34 SEX: M EXAM STATUS: REG ER ORD. PHYSICIAN: PRITI MCKENZIE MD REASON: cough, fever hx PROCEDURE: CHEST PA & LATERAL CHEST PA LATERAL INDICATION: Reason: cough, fever hx / Spl. Instructions: / History: . COMPARISON STUDY: 11/06/2018. FINDINGS: Lungs: Normal lung volume. No pulmonary mass or consolidation. The tracheobronchial tree and hilar structures are normal. Pleura: No pleural effusion or pneumothorax. Heart and Mediastinum: The cardiomediastinal silhouette is normal. The great vessels of the thorax are normal. Bones and Soft Tissues: The bones and soft tissues are within normal limits. IMPRESSION: No consolidation. Electronically signed by: Jerry Grover MD (10/07/2019 10:23 PM) [id number] DICTATED AND SIGNED BY: JERRY GROVER MD DATE: 10/07/192222 CC: PRITI MCKENZIE MD; PCP,NO ~ [address] [place] [id number] IMAGING REPORT Signed PATIENT: GENTRY SANABRIA ACCOUNT: [id number] : 1985 LOCATION: ER AGE: 34 SEX: M EXAM STATUS: REG ER ORD. PHYSICIAN: PRITI MCKENZIE MD REASON: rashid, no improvement since prior visit PROCEDURE: CT HEAD WO CONTRAST CT HEAD WO CONTRAST Date: 10/07/2019 9:12 PM Clinical Indication: Reason: rashid, no improvement since prior visit / Spl. Instructions: / History: Comparison: None. Technique: 5 mm axial tomographic images were obtained of the head without contrast. These were viewed on brain and bone windows. One or more of the following dose reduction techniques were utilized: Automated exposure control (AEC), Adjustment of mA and/or kV according to patient size, Use of iterative reconstruction technique such as ASiR, CT scan done according to ALARA and image gently/image wisely Findings: The brain parenchyma is normal in attenuation. No intra- or extra-axial mass or fluid collection. No acute hemorrhage. The ventricles are normal in size, shape, and morphology. The quinonez-white matter junction is normal. The subarachnoid cisterns are patent. The visualized paranasal sinuses are normal. The visualized portions of the orbits and globes are normal. The mastoid air cells are clear. The public relations account supervisor topogram shows no lytic lesion or fracture. Impression: No acute intracranial process. Electronically signed by: Jerry Grover MD (10/07/2019 9:44 PM) [id number] DICTATED AND SIGNED BY: JERRY GROVER MD DATE: 10/07/192143 CC: PRITI MCKENZIE MD; PCP,NO ~ Course & Med Decision Making: Course & Med Decision Making Pertinent Labs and Imaging studies reviewed. (See chart for details) Patient declined spinal tap at this time. Risk and benefits discussed. Patient gargle Listerine 4 times a day. Patient take Benadryl, Tylenol, and ibuprofen as needed for discomfort. Patient taking Zithromax 250 mg daily for 5 days. Patient encouraged to stop smoking. Patient encouraged to follow-up primary care. Patient return if any concerns. Patient is to self isolate if ill. Patient wear mask covering nose and mouth anytime he is in contact public. Impression: 1. Fever 2. Strep pharyngitis 3. Headache 4. Leukocytosis 13.9 5. Elevated CRP 69.4 [] Dragon Disclaimer: Dragshanika Disclaimer: This electronic medical record was generated, in whole or in part, using a voice recognition dictation system. Departure Departure: Disposition: 01 HOME/RESIDENCE PRIOR TO ADM Condition: STABLE Referrals: PCP,NO (PCP) Scripts Azithromycin (ZITHROMAX) 250 Mg Tablet 250 MG PO DAILY for ANTI-BIOTIC for 5 Days, #5 TAB 0 Refills Prov: PRITI MCKENZIE MD 10/07/19 Herb Disclaimer This chart was dictated in whole or in part using Voice Recognition software in a busy, high-work load, and often noisy Emergency Department environment. It may contain unintended and wholly unrecognized errors or omissions. PRITI MCKENZIE MD October 07, 2019 21:11
[2019-10-07] MEDS ORDERED: IV RINGERS SOLUTION,LACTATED 1,000 ML IV SCH (21:12)
[2019-10-07 21:15] VITALS: BP 133/72
--- NOTE | 2019-10-07 21:46 | RAD ---
CT HEAD WO CONTRAST Date: 10/07/2019 9:12 PM Clinical Indication: Reason: rashid, no improvement since prior visit / Spl. Instructions: / History: Comparison: None. Technique: 5 mm axial tomographic images were obtained of the head without contrast. These were viewed on brain and bone windows. One or more of the following dose reduction techniques were utilized: Automated exposure control (AEC), Adjustment of mA and/or kV according to patient size, Use of iterative reconstruction technique such as ASiR, CT scan done according to ALARA and image gently/image wisely Findings: The brain parenchyma is normal in attenuation. No intra- or extra-axial mass or fluid collection. No acute hemorrhage. The ventricles are normal in size, shape, and morphology. The quinonez-white matter junction is normal. The subarachnoid cisterns are patent. The visualized paranasal sinuses are normal. The visualized portions of the orbits and globes are normal. The mastoid air cells are clear. The chemical handler topogram shows no lytic lesion or fracture. Impression: No acute intracranial process. Electronically signed by: Ellis Grover MD (10/07/2019 9:44 PM) [id number]
[2019-10-07] MEDS ORDERED: ACETAMINOPHEN 500 MG TABLET PO ONE ×2 (22:05→22:15)
[2019-10-07] MEDS ORDERED: AZITHROMYCIN 250 MG TABLET. PO ONE (22:15)
[2019-10-07] MEDS ORDERED: ONDANSETRON ODT 4 MG TAB.RAPDIS PO ONE (22:15)
[2019-10-07 22:25] LABS: BASO % 0 % (0-3); EOS # 0.3 x10^3/uL (0.0-0.7); EOS % 2 % (0-3); HEMATOCRIT 43.2 % (39.0-53.0); HEMOGLOBIN 14.5 g/dL (13.0-17.5); LYMPH # 3.1 x10^3/uL (1.0-4.8); LYMPH % 22 % (24-48); MEAN CORPUSCULAR HEMOGLOBIN 29 pg (25-35); MEAN CORPUSCULAR HGB CONC 34 g/dL (31-37); MEAN CORPUSCULAR VOLUME 87 fL (79-100); MONO # 0.8 x10^3/uL (0.0-1.1); MONO % 6 % (0-9); NEUT # 9.6 x10^3uL (1.8-7.7); NEUT % 69 % (31-73); PLATELET COUNT 177 x10^3/uL (140-400); RED CELL DISTRIBUTION WIDTH 14.2 % (11.5-14.5); WHITE BLOOD COUNT 13.9 x10^3/uL (4.0-11.0)
--- NOTE | 2019-10-07 22:26 | RAD ---
CHEST PA LATERAL INDICATION: Reason: cough, fever hx / Spl. Instructions: / History: . COMPARISON STUDY: 11/06/2018. FINDINGS: Lungs: Normal lung volume. No pulmonary mass or consolidation. The tracheobronchial tree and hilar structures are normal. Pleura: No pleural effusion or pneumothorax. Heart and Mediastinum: The cardiomediastinal silhouette is normal. The great vessels of the thorax are normal. Bones and Soft Tissues: The bones and soft tissues are within normal limits. IMPRESSION: No consolidation. Electronically signed by: Ellis Grover MD (10/07/2019 10:23 PM) [id number]
[2019-10-07 22:37] LABS: BILIRUBIN,URINE NEG (NEG); CLARITY,URINE CLEAR; COLOR,URINE YELLOW; GLUCOSE,URINE NEG (NEG)
[2019-10-07 22:38] LABS: CALCIUM 9.1 mg/dL (8.5-10.1); GFR 85.5; POTASSIUM 3.7 mmol/L (3.5-5.1)
[2019-10-07 22:38] LABS: NITRITE,URINE NEG (NEG)
[2019-10-07 22:39] LABS: BARBITURATES NEG (NEG); BENZODIAZEPINES NEG (NEG); CANNABINOIDS NEG (NEG); COCAINE NEG (NEG); METHADONE NEG (NEG); OPIATES NEG (NEG); PHENCYCLIDINE NEG (NEG)
[2019-10-07 22:40] LABS: BACTERIA,URINE FEW /HPF (0-FEW); RBC,URINE 0 /HPF (0-2); WBC,URINE 0 /HPF (0-4)
[2019-10-07 22:41] LABS: AMORPHOUS SEDIMENT,UR PRESENT /HPF
[2019-10-07 22:43] LABS: AMPHETAMINE/METHAMPHETAMINE NEG (NEG)
[2019-10-07 22:53] LABS: ALBUMIN 3.7 g/dL (3.4-5.0); C REACTIVE PROTEIN 69.4 mg/L (0-3.3); DIRECT BILIRUBIN 0.1 mg/dL (0.0-0.2); MAGNESIUM 2.2 mg/dL (1.8-2.4); TOTAL BILIRUBIN 0.4 mg/dL (0.2-1.0); TOTAL PROTEIN 7.3 g/dL (6.4-8.2)
[2019-10-07 22:54] LABS: INFLUENZA A PATIENT NEGATIVE (NEGATIVE); INFLUENZA B PATIENT NEGATIVE (NEGATIVE)
[2019-10-07] MEDS ORDERED: AZIT250T PO (23:46)
[2019-10-07] MEDS ORDERED: predniSONE 20 MG TABLET ONE (23:48)
[2019-10-08] MEDS ORDERED: KETOROLAC 60 MG/2 ML VIAL. IM ONE
[2019-10-08] MEDS ORDERED: predniSONE 10 MG TABLET PO ONE
--- NOTE | 2019-10-08 13:58 | EKG ---
[address] [address] Test Date: 2019-10-07 Test Time: 21:22:17 Pat Name: GENTRY SANABRIA Department: Room: Gender: M [place]: : 1985 Requested By: PRITI MCKENZIE Order Number: [id number] Reading MD: Don Spears MD Measurements Intervals [place] Rate: 88 P: 42 AK: 136 QRS: 52 QRSD: 92 T: 43 QT: 342 QTc: 417 Interpretive Statements SINUS RHYTHM Electronically Signed On 10-10-2019 12:19:58 CDT by Don Spears MD
== END 2019-10-08 00:08 | disposition home or self-care (01) ==
LOC: ER 21:01
DX: J02.0 Streptococcal pharyngitis (principal); B95.0 Streptococcus, group A, as the cause of diseases classified elsewhere; D72.829 Elevated white blood cell count, unspecified; R79.82 Elevated C-reactive protein (CRP); J45.909 Unspecified asthma, uncomplicated; F17.210 Nicotine dependence, cigarettes, uncomplicated; G43.909 Migraine, unspecified, not intractable, without status migrainosus; Z88.0 Allergy status to penicillin; Z88.1 Allergy status to other antibiotic agents
CPT/HCPCS: 36415; 70450; 71046; 80048; 80076; 80307; 81001; 82550; 83690; 83735; 83880; 84443; 84484; 85025; 85379; 85610; 85730; 86140; 87040; 87804; 87880; 93005; 96372; 99285; J0456; J1885; J7120; J7512; Q0162

== ENCOUNTER 2020-03-16 12:31 | Emergency (ER) | payer SELFPAY ==
[~2020-03-16 12:31] MED LIST changes: +AZIT250T PO
[2020-03-17] MEDS ORDERED: HYDR-3165 PO (07:31)
== END 2020-03-16 12:48 | disposition left against medical advice (07) ==
LOC: ER 12:31
DX: N28.9 Disorder of kidney and ureter, unspecified (principal); Z53.21 Procedure and treatment not carried out due to patient leaving prior to being seen by health care provider

== ENCOUNTER 2020-03-17 05:56 | Emergency (ER) | payer SELFPAY ==
[~2020-03-17] VITALS: Ht 180.3 cm; Wt 94.0 kg
[2020-03-17 05:57] VITALS: BP 111/58
[2020-03-17] MEDS ORDERED: KETOROLAC 30 MG/ML VIAL. ONE (06:33)
--- NOTE | 2020-03-17 06:42 | PHYS DOC ---
Past History Past Medical History: Asthma, Bronchitis, Kidney Stones, Pneumonia Past Surgical History: Tonsillectomy, Other Additional Past Surgical Histo: Inguinal hernia repair Smoking: Cigarettes Alcohol Use: None Drug Use: None General Adult EDM: Chief Complaint: BACK PAIN - NO INJURY HPI: HPI: 35-year-old male presents with bilateral flank pain. He has had intermittent pain for the last 4 days. Patient has a history of kidney stones. He states that the pain is similar but is on both sides he has never had feeling on both sides before. He describes the pain as a cramping sensation. He denies dysuria or increased urinary frequency. He denies any falls, trauma, or overuse. No fever or chills. Review of Systems: Review of Systems: Constitutional: Denies fever or chills Eyes: Denies change in visual acuity HENT: Denies nasal congestion or sore throat Respiratory: Denies cough or shortness of breath Cardiovascular: Denies chest pain or edema GI: Denies abdominal pain, nausea, vomiting, bloody stools or diarrhea : Denies dysuria Musculoskeletal: Flank pain Integument: Denies rash Neurologic: Denies headache, focal weakness or sensory changes Endocrine: Denies polyuria or polydipsia Lymphatic: Denies swollen glands Psychiatric: Denies depression or anxiety Current Medications: Current Meds: Current Medications Medications (Trade) Dose Ordered Sig/Irma Start Time Stop Time Status Last Admin Dose Admin Sodium Chloride 1,000 ml @ 1,000 mls/hr 1X ONCE 03/17/20 07:00 03/17/20 07:59 Allergies: Allergies: Allergies Coded Allergies Type Severity Reaction Last Updated Verified Penicillins Allergy Intermediate 10/07/19 Yes doxycycline Allergy Intermediate 10/07/19 Yes Physical Exam: PE: Constitutional: Well developed, well nourished, no acute distress, non-toxic appearance. [] HENT: Normocephalic, atraumatic, bilateral external ears normal, oropharynx moist, no oral exudates, nose normal. [] Eyes: PERRLA, EOMI, conjunctiva normal, no discharge. [] Neck: Normal range of motion, no tenderness, supple, no stridor. [] Cardiovascular: Heart rate regular rhythm, no murmur [] Lungs & Thorax: Bilateral breath sounds clear to auscultation [] Abdomen: Bowel sounds normal, soft, no tenderness, no masses, no pulsatile masses. [] Skin: Warm, dry, no erythema, no rash. [] Back: No tenderness, mild bilateral CVA tenderness. [] Extremities: No tenderness, no cyanosis, no clubbing, ROM intact, no edema. [] Neurologic: Alert and oriented X 3, normal motor function, normal sensory function, no focal deficits noted. [] Psychologic: Affect normal, judgement normal, mood normal. [] Current Patient Data: Vital Signs: Vital Signs Date Time Temp Pulse Resp B/P (MAP) Pulse Ox O2 Delivery O2 Flow Rate FiO2 03/17/20 05:57 98.0 86 20 111/58 (75) 95 Room Air EKG: EKG: [] Radiology/Procedures: Radiology/Procedures: [] Impressions: PQRS Compliance Statement: One or more of the following individualized dose reduction techniques were utilized for this examination: 1. Automated exposure control 2. Adjustment of the mA and/or kV according to patient size 3. Use of iterative reconstruction technique CT ABDOMEN PELVIS WO CONTRAST Clinical Indication: Reason: flank pain, hx kidney stones / Spl. Instructions: / History: Comparison: CT abdomen and pelvis without contrast, May 30, 2012. Technique: Helical CT imaging of the abdomen and pelvis is performed without IV or oral contrast. Findings: Evaluation of solid organs and bowel is limited without oral and IV contrast, decreasing sensitivity for detection of pathology. Lung bases are clear. Cardiac size normal. The liver, gallbladder, spleen, pancreas, adrenal glands, and abdominal aorta are normal. There is no hydronephrosis or perinephric stranding. There is a 2 mm calculus at the left ureterovesicular junction, axial image 121, coronal image 53. There is no right ureteral calculus. There is no renal calculus. The stomach is unremarkable. There are tiny retroperitoneal lymph nodes. There is no dilated small bowel. The appendix is normal. There is no colon wall thickening. There is right inguinal hernia mesh. Tiny fat-containing umbilical hernia. No abdominal free fluid. Urinary bladder is not well distended, otherwise normal. Prostate and seminal vesicles are normal. No pelvic free fluid. No acute bone abnormality. IMPRESSION: There is a 2 mm calculus at the left ureterovesicular junction producing no significant obstructive uropathy. Electronically signed by: Javier Becker MD (03/17/2020 7:22 AM) [id number] DICTATED AND SIGNED BY: JAVIER BECKER MD DATE: 03/17/20 0722 CC: NIK HAMILTON DO; PCP,NO ~ Heart Score: Risk Factors: Risk Factors: DM, Current or recent (<one month) smoker, HTN, HLP, family history of CAD, obesity. Risk Scores: Score 0 - 3: 2.5% MACE over next 6 weeks - Discharge Home Score 4 - 6: 20.3% MACE over next 6 weeks - Admit for Clinical Observation Score 7 - 10: 72.7% MACE over next 6 weeks - Early Invasive Strategies Course & Med Decision Making: Course & Med Decision Making Pertinent Labs and Imaging studies reviewed. (See chart for details) The patient's CT scan does show a 2 mm stone at the ureterovesicular junction. This should pass without complication. There is no hydronephrosis or sig nificant signs of obstruction. I will give the patient a short course of [place] for discomfort. He is stable for discharge at this time. [] Dragon Disclaimer: Dragon Disclaimer: This electronic medical record was generated, in whole or in part, using a voice recognition dictation system. Departure Departure: Impression: Primary Impression: Kidney stone on left side Disposition: 01 DC HOME SELF CARE/HOMELESS Condition: STABLE Referrals: PCP,NO (PCP) Patient Instructions: Kidney Stones, [id number] Scripts Hydrocodone Bit/Acetaminophen (NORCO 5-325 TABLET) 1 Each Tablet 1 TAB PO PRN Q6HRS PRN for PAIN, #10 TAB 0 Refills Prov: NIK HAMILTON DO 03/17/20 NIK HAMILTON DO Mar 17, 2020 06:42
[2020-03-17 06:53] LABS: CREATININE 1.1 mg/dL (0.7-1.3); GFR 76.2; POTASSIUM 3.8 mmol/L (3.5-5.1)
[2020-03-17 06:59] LABS: ALBUMIN 3.7 g/dL (3.4-5.0); ALBUMIN/GLOBULIN RATIO 1.2 (1.0-1.7); TOTAL BILIRUBIN 0.4 mg/dL (0.2-1.0); TOTAL PROTEIN 6.7 g/dL (6.4-8.2)
[2020-03-17] MEDS ORDERED: IV NORMAL SALINE 1,000ML 1,000 ML IV ONE (07:00)
[2020-03-17] MEDS ORDERED: KETOROLAC 30 MG/ML VIAL. IVP ONE (07:00)
[2020-03-17 07:10] LABS: BASO # 0.1 x10^3/uL (0.0-0.2); BASO % 0 % (0-3); EOS # 0.5 x10^3/uL (0.0-0.7); EOS % 3 % (0-3); HEMATOCRIT 45.4 % (39.0-53.0); HEMOGLOBIN 14.9 g/dL (13.0-17.5); LYMPH # 4.1 x10^3/uL (1.0-4.8); LYMPH % 28 % (24-48); MEAN CORPUSCULAR HEMOGLOBIN 29 pg (25-35); MEAN CORPUSCULAR HGB CONC 33 g/dL (31-37); MEAN CORPUSCULAR VOLUME 87 fL (79-100); MONO # 0.7 x10^3/uL (0.0-1.1); MONO % 5 % (0-9); NEUT # 9.5 x10^3uL (1.8-7.7); NEUT % 64 % (31-73); PLATELET COUNT 187 x10^3/uL (140-400); RED CELL DISTRIBUTION WIDTH 14.3 % (11.5-14.5); WHITE BLOOD COUNT 14.9 x10^3/uL (4.0-11.0)
--- NOTE | 2020-03-17 07:25 | RAD ---
PQRS Compliance Statement: One or more of the following individualized dose reduction techniques were utilized for this examination: 1. Automated exposure control 2. Adjustment of the mA and/or kV according to patient size 3. Use of iterative reconstruction technique CT ABDOMEN PELVIS WO CONTRAST Clinical Indication: Reason: flank pain, hx kidney stones / Spl. Instructions: / History: Comparison: CT abdomen and pelvis without contrast, May 30, 2012. Technique: Helical CT imaging of the abdomen and pelvis is performed without IV or oral contrast. Findings: Evaluation of solid organs and bowel is limited without oral and IV contrast, decreasing sensitivity for detection of pathology. Lung bases are clear. Cardiac size normal. The liver, gallbladder, spleen, pancreas, adrenal glands, and abdominal aorta are normal. There is no hydronephrosis or perinephric stranding. There is a 2 mm calculus at the left ureterovesicular junction, axial image 121, coronal image 53. There is no right ureteral calculus. There is no renal calculus. The stomach is unremarkable. There are tiny retroperitoneal lymph nodes. There is no dilated small bowel. The appendix is normal. There is no colon wall thickening. There is right inguinal hernia mesh. Tiny fat-containing umbilical hernia. No abdominal free fluid. Urinary bladder is not well distended, otherwise normal. Prostate and seminal vesicles are normal. No pelvic free fluid. No acute bone abnormality. IMPRESSION: There is a 2 mm calculus at the left ureterovesicular junction producing no significant obstructive uropathy. Electronically signed by: Javier Wilkins MD (03/17/2020 7:22 AM) [id number]
[2020-03-17] MEDS ORDERED: HYDR-3165 PO (07:31)
[2020-03-17] MEDS ORDERED: TAMSULOSIN 0.4 MG CAP.ER.24H. PO ONE (07:45)
[2020-03-17 08:08] LABS: BILIRUBIN,URINE NEG (NEG); CLARITY,URINE HAZY; COLOR,URINE AMBER; GLUCOSE,URINE NEG (NEG); NITRITE,URINE NEG (NEG); UROBILINOGEN,URINE 0.2 mg/dL (0.2 mg/dL)
[2020-03-17 08:09] LABS: BACTERIA,URINE FEW /HPF (0-FEW); SQUAMOUS EPITHELIAL CELL,UR OCC /LPF; WBC,URINE RARE /HPF (0-4)
[2020-03-17 08:10] LABS: AMORPHOUS SEDIMENT,UR PRESENT /HPF
== END 2020-03-17 07:47 | disposition home or self-care (01) ==
LOC: ER 05:56
DX: N13.2 Hydronephrosis with renal and ureteral calculous obstruction (principal); J45.909 Unspecified asthma, uncomplicated; F17.210 Nicotine dependence, cigarettes, uncomplicated; Z87.442 Personal history of urinary calculi; Z88.0 Allergy status to penicillin; Z88.1 Allergy status to other antibiotic agents
CPT/HCPCS: 36415; 74176; 80053; 81001; 85025; 96361; 96374; 99284; J1885; J7030

== ENCOUNTER 2020-07-09 23:07 | Emergency (ER) | payer OTHER ==
[~2020-07-09] VITALS: Ht 180.3 cm; Wt 97.7 kg
[~2020-07-09 23:07] MED LIST changes: +HYDR-3165 PO
[2020-07-10] MEDS ORDERED: ACETAMINOPHEN 500 MG TABLET PO ONE
[2020-07-10] MEDS ORDERED: diazePAM 5 MG TABLET. PO ONE
[2020-07-10] MEDS ORDERED: IBUPROFEN 600 MG TABLET. PO ONE
[2020-07-10] MEDS ORDERED: ONDANSETRON ODT 4 MG TAB.RAPDIS PO ONE
--- NOTE | 2020-07-10 00:12 | RAD ---
EXAM: LEFT WRIST 3 VIEWS. HISTORY: Pain, trauma. COMPARISON: None. FINDINGS: No fractures are identified. Alignment is maintained. Joint spaces are maintained. IMPRESSION: 1. No fracture. Electronically signed by: Graciela Mantilla MD (07/10/2020 12:09 AM) [facility]
[2020-07-10] MEDS ORDERED: DIAZ5TAB4 PO (00:36)
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
[2020-07-10 01:00] VITALS: BP 109/74
[2020-07-10] MEDS ORDERED: oxyCODONE IR 5 MG TABLET PO ONE (01:00)
== END 2020-07-10 00:58 | disposition home or self-care (01) ==
LOC: ER 23:07
DX: M25.532 Pain in left wrist (principal); G89.11 Acute pain due to trauma; M25.511 Pain in right shoulder; M25.512 Pain in left shoulder; J45.909 Unspecified asthma, uncomplicated; F17.210 Nicotine dependence, cigarettes, uncomplicated; Z88.0 Allergy status to penicillin; Z88.1 Allergy status to other antibiotic agents; V49.88XA Car occupant (driver) (passenger) injured in other specified transport accidents, initial encounter; Y92.488 Other paved roadways as the place of occurrence of the external cause; Y93.89 Activity, other specified; Y99.8 Other external cause status
CPT/HCPCS: 73110; 99284; Q0162